=== PATIENT | female | born 1990 | race Caucasian/White ===

== ENCOUNTER → 2017-02-12 09:46 | Outpatient (CLI) | payer MEDICAID, SELFPAY ==
[2017-02-12 11:37] LABS: Basophils % 0.5 % (0.1-2.0); Eosinophils # 0.1 K/mm3 (0.0-0.4); Eosinophils % 1.8 % (0.1-12.0); Hematocrit 44.8 % (37.0-47.0); Hemoglobin 15.7 g/dL (12.2-16.2); Lymphocytes # 3.2 K/mm3 (0.7-4.5); Lymphocytes % 51.2 K/mm3 (10-50); Mean Corpuscular Hemoglobin 29.5 pg (27.0-31.2); Mean Corpuscular Volume 84.4 fl (81-99); Mean Platelet Volume 9.6 fl (7.4-10.4); Monocytes # 0.5 K/mm3 (0.1-1.0); Monocytes % 7.9 % (1.7-9.3); Neutrophils # 2.4 K/mm3 (1.8-7.8); Neutrophils % 38.6 % (37.0-80.0); Platelet Count 226 K/mm3 (142-424); Red Blood Count 5.31 M/mm3 (4.20-5.40); Red Cell Distribution Width 12.7 % (11.5-17.5); White Blood Count 6.3 K/mm3 (4.8-10.8)
[2017-02-12 11:39] LABS: MANUAL DIFFERENTIAL MANUAL DIFFERENTIAL (MANUAL DIFF)
[2017-02-12 11:44] LABS: Anion Gap 14.8 mEq/L (5-15); Blood Urea Nitrogen 9 mg/dL (7-18); Carbon Dioxide 24 mmol/L (21.0-32.0); Chloride 103 mmol/L (98-107); Creatinine,Serum 0.79 mg/dL (0.55-1.02); Estimated Glomerular Filt Rate > 60 ml/min (>60); GFR (African American) > 60 ML/MIN (>60); Glucose 84 mg/dL (74-106); Potassium 3.8 mmoL/L (3.5-5.1); Sodium 138 mmol/L (136-145)
[2017-02-12 11:57] LABS: HCG Qualitative, Serum Negative (Negative)
[2017-02-12 12:13] LABS: Eosinophils % 2 % (0-3); Lymphocytes % 43 % (10-50); Monocytes % 4 % (2-9); Neutrophils % 44 % (42-76); Platelet Estimate Normal; Total Cells Counted 100
[2017-02-12 12:25] LABS: RBC Morphology Normal
== END ==
PROVIDERS: PCP Family Medicine; Visit Provider Nurse Practitioner Obstetrics & Gynecology
DX: N92.0 Excessive and frequent menstruation with regular cycle (principal); N94.10 Unspecified dyspareunia; R10.2 Pelvic and perineal pain; Z01.818 Encounter for other preprocedural examination
CPT/HCPCS: 36415; 80048; 84703; 85007; 85025

== ENCOUNTER 2017-05-01 09:12 | Emergency (ER) | payer MEDICAID, SELFPAY ==
[2017-05-01 09:31] VITALS: BP 145/97; PULSE 95; RESP 20; TEMP 36.9; O2SAT 100; BMI 22.9
--- NOTE | 2017-05-01 09:54 | HMH.EDUTC ---
[facility] [place] Disposition Clinical Impression: UTI (urinary tract infection) Qualifiers: Urinary tract infection type: site unspecified Hematuria presence: with hematuria Qualified Code(s): N39.0 - Urinary tract infection, site not specified Disposition: Home, Self-Care Condition on Discharge: Good Instructions: Urinary Tract Infection, Carbamazepine, Mirtazapine, Paroxetine Additional Instructions: Follow up with family doctor on Wednesday for examination and evaluation of medication Follow up with family doctor in 24-48 hours if symptoms not improved or worsened Straight to ER if you began having worsening of symptoms, shortness of breath, hallucinations or worsening of depression or any life threatening symptoms Return if needed Take Paxil dose later in evening to see if that may help with drowsiness Continued taking medication as prescribed and follow up with family for changes Take antibiotics as prescribed and follow up with family doctor for further treatment and evaluation for UTI Prescriptions: Sulfamethoxazole/Trimethoprim [Bactrim DS tablet] 1 each PO BID #20 tab Referrals: Delio Roque [Primary Care Provider] - Time of Disposition: 10:49 Medical Decision Making - Medical Records Medical records reviewed: Yes: I reviewed the patient's medical records. - Bo Inquiry Pt receiving controlled substance: No Bo was queried for this patient: No Vital Signs: 05/01/17 09:31 Temperature 98.4 F Temperature Source Oral Pulse Rate [Right Brachial] 95 H Respiratory Rate 20 Blood Pressure [Right Arm] 145/97 Blood Pressure Mean [Right Arm] 113 Blood Pressure Source [Right Arm] Automatic Cuff Blood Pressure Position [Right Arm] Sitting 02 Sat by Pulse Oximetry 100 Oxygen Delivery Method Room Air - Lab Data Lab Results 05/01/17 09:56: Urine Color Yellow, Urine Appearance Clear, Urine pH 6.0, Ur Specific [place] 1.020, Urine Protein Negative, Urine Glucose (UA) Negative, Urine Ketones Negative, Urine Blood Negative, Urine Nitrate Negative, Urine Bilirubin Negative, Urine Urobilinogen 0.2, Ur Leukocyte Esterase Trace - Reevaluation(s) Time: 10:03 Reevaluation #1: Spoke with Pharmacy and patient. Patient educated that she needed to have doctor currently treating her and prescribing medication to adjust the doseage and find the appropriate dose Educated that we are unable to monitor medications and progress in the [facility] Patient educated that family doctor may monitor her medication and adjust appropriatly. Also risk of further side effects she does not need to abruptly stop medication. Suggested that instead of taking Paxil in the morning take it later in the evening considering a side effect of Paxil is drowsiness. Maybe by taking dose in the evening she would be able to sleep better at night and be more awake during the day Time: 10:29 Reevaluation #3: urine collected and dip test done Patient urinated small amount, swabs done to rule out flu and strep awaiting results. Patient alert awake sitting in room no signs of distress or changes Time reevaluation 3: 10:48 Reevaluation #2: All result back discussed antibiotic treatment with Earl from Pharmacy, patient still alert sitting up on exam table no distress [facility] [place] HPI - General Stated complaint: Lathargic, can't urinate Time Seen by Provider: 05/01/17 09:40 Mode of Arrival: Ambulatory Source of Information: Patient Limitations: No Limitations Description of Symptoms (Recalled from Triage Doc. by RN): c/o excessive drowsiness from psychiatric meds. Just released from [facility] yesterday. States she has only been awake 1 hour in last 3 days. wanting meds to be adjusted HEENT Symptoms (Recalled from RN notes): No Resp Symptoms (Recalled from RN notes): No Skin Symptoms (Recalled from RN notes): No MS Symptoms (Recalled from RN notes): No Functional Status (Recalled from RN notes): n/a - History of Present Illness Provider Complaint: Patient state th
--- NOTE | 2017-05-01 09:58 | ED_ITS ---
[facility] [place] Clinical Impression: UTI (urinary tract infection) Qualifiers: Urinary tract infection type: site unspecified Hematuria presence: with hematuria Qualified Code(s): N39.0 - Urinary tract infection, site not specified Disposition: Home, Self-Care Condition on Discharge: Good Instructions: Urinary Tract Infection, Carbamazepine, Mirtazapine, Paroxetine Additional Instructions: Follow up with family doctor on Wednesday for examination and evaluation of medication Follow up with family doctor in 24-48 hours if symptoms not improved or worsened Straight to ER if you began having worsening of symptoms, shortness of breath, hallucinations or worsening of depression or any life threatening symptoms Return if needed Take Paxil dose later in evening to see if that may help with drowsiness Continued taking medication as prescribed and follow up with family for changes Take antibiotics as prescribed and follow up with family doctor for further treatment and evaluation for UTI Prescriptions: Sulfamethoxazole/Trimethoprim [Bactrim DS tablet] 1 each PO BID #20 tab Referrals: Delio Roque [Primary Care Provider] - Time of Disposition: 10:49 Medical Decision Making - Medical Records Medical records reviewed: Yes: I reviewed the patient's medical records. - Bo Inquiry Pt receiving controlled substance: No Bo was queried for this patient: No Vital Signs: 05/01/17 09:31 Temperature 98.4 F Temperature Source Oral Pulse Rate [Right Brachial] 95 H Respiratory Rate 20 Blood Pressure [Right Arm] 145/97 Blood Pressure Mean [Right Arm] 113 Blood Pressure Source [Right Arm] Automatic Cuff Blood Pressure Position [Right Arm] Sitting 02 Sat by Pulse Oximetry 100 Oxygen Delivery Method Room Air - Lab Data Lab Results 05/01/17 09:56: Urine Color Yellow, Urine Appearance Clear, Urine pH 6.0, Ur Specific [place] 1.020, Urine Protein Negative, Urine Glucose (UA) Negative, Urine Ketones Negative, Urine Blood Negative, Urine Nitrate Negative, Urine Bilirubin Negative, Urine Urobilinogen 0.2, Ur Leukocyte Esterase Trace - Reevaluation(s) Time: 10:03 Reevaluation #1: Spoke with Pharmacy and patient. Patient educated that she needed to have doctor currently treating her and prescribing medication to adjust the doseage and find the appropriate dose Educated that we are unable to monitor medications and progress in the [facility] Patient educated that family doctor may monitor her medication and adjust appropriatly. Also risk of further side effects she does not need to abruptly stop medication. Suggested that instead of taking Paxil in the morning take it later in the evening considering a side effect of Paxil is drowsiness. Maybe by taking dose in the evening she would be able to sleep better at night and be more awake during the day Time: 10:29 Reevaluation #3: urine collected and dip test done Patient urinated small amount, swabs done to rule out flu and strep awaiting results. Patient alert awake sitting in room no signs of distress or changes Time reevaluation 3: 10:48 Reevaluation #2: All result back discussed antibiotic treatment with Earl from Pharmacy, patient still alert sitting up on exam table no distress [facility] [place]PI - General Stated complaint: Lathargic, can't urinate Time Seen by Provider: 05/01/17 09:40 Mode of Arrival: Ambulatory Source of Information: Patient Limitations: No Limitations Description of Symptoms (Recalled from Triage Doc. by RN): c/o
[2017-05-01 10:24] LABS: Apearance,Urine Clear (Clear); Color,Urine Yellow (Yellow)
[2017-05-01 10:25] LABS: Blood, Urine Negative (Negative); Glucose,Urine (UA) Negative (Negative); Ketones,Urine Negative (Negative); Protein,Urine Negative (Negative); Urobilinogen,Urine 0.2 EU/dl (0.2)
[2017-05-01 10:26] LABS: Bilirubin,Urine Negative (Negative); UTC Leukocyte Esterase,Urine Trace (Negative); UTC Nitrate,Urine Negative (Negative)
[2017-05-01 10:48] VITALS: BP 132/88; PULSE 90; RESP 18; TEMP 36.6; O2SAT 99
[2017-05-01 10:48] LABS: UTC Influenza A Antigen Negative (Negative); UTC Influenza B Antigen Negative (Negative); UTC Strep Screen (Rapid) Negative (Negative)
== END 2017-05-01 10:51 | disposition home or self-care (01) ==
PROVIDERS: Emergency Provider Nurse Practitioner; Family Provider Family Medicine; PCP Family Medicine
DX: N39.0 Urinary tract infection, site not specified (principal); Z88.7 Allergy status to serum and vaccine; Z79.899 Other long term (current) drug therapy
CPT/HCPCS: 81003; 87804; 87880; 99202

== ENCOUNTER 2017-05-07 12:07 | Emergency (ER) | payer MEDICAID, SELFPAY ==
[2017-05-07 12:11] VITALS: BP 136/88; PULSE 96; RESP 20; TEMP 37.1; O2SAT 98; BMI 22.9
--- NOTE | 2017-05-07 12:42 | HMH.EDURI ---
ED Disposition Clinical Impression: Edema tongue Disposition: Home, Self-Care Condition on Discharge: Good Additional Instructions: followup that the Paxil may be causing tongue edema and discomfirt at this time no evidence airway compromise, will Rx Ataarx for treatment Prescriptions: hydrOXYzine pamoate [Vistaril 25mg capsule] 25 mg PO Q8 PRN #20 cap PRN Reason: Dyspnea Referrals: Delio Roque [Primary Care Provider] - - Critical Care Critical Care Time: No Attestation: On 05/07/17, the high probability of a clinically significant, sudden or life threatening deterioration of the following system(s) required my full and direct attention, intervention and personal management. The time I documented below is in addition to time spent performing reported procedures but includes the following listed in this critical care notation. Medical Decision Making - Medical Records Medical records reviewed: Yes: I reviewed the patient's medical records. - Bo Inquiry Pt receiving controlled substance: No Bo was queried for this patient: No Vital Signs: 05/07/17 12:11 05/07/17 14:15 Temperature 98.8 F 98.5 F Temperature Source Oral Oral Pulse Rate [Right Brachial] 96 H 85 Respiratory Rate 20 16 Blood Pressure [Right Arm] 136/88 123/81 Blood Pressure Mean [Right Arm] 104 95 Blood Pressure Source [Right Arm] Automatic Cuff Automatic Cuff Blood Pressure Position [Right Arm] Supine Sitting 02 Sat by Pulse Oximetry 98 97 Oxygen Delivery Method Room Air Room Air - Radiology Data #1 Image(s): Other (soft tissues neck) Image Reviewed: Yes I reviewed the patient's radiology results Preliminary Findings: Normal/NAD URI/Sore Throat HPI - General Chief Complaint: Shortness of Breath/Dyspnea Stated Complaint: has had seizure and tonngue swelling Time Seen by Provider: 05/07/17 13:30 Mode of Arrival: Ambulatory Source of Information: Patient Limitations: No Limitations Description of Symptoms (Recalled from ER Triage Doc. by RN): WAS RECENTLY IN [facility] FOR DRUG ABUSE AND DEVELOPED SEIZURES. HERE TODAY FOR C/O SWELLING OF MOUTH,TOUNGUE AND THROAT WITH SOB SINCE LAST PM. HAS C/O SORENESS AND BLISTERS IN MOUTH. JUST STARTED TAKING CLINDAMYCIN A COUPLE OF AYS AGO FOR CELLULITIS OF HAND - History of Present Illness HPI Narrative: blisters in tongue and tongue swelling MD Complaint: fever Onset (ago): hour(s) (12) Duration: constant Severity: mild Relieving factors: nothing Exacerbating factors: nothing - Related Data Home Medications Medication Instructions Recorded Confirmed PARoxetine HCl [Paxil 20mg Tablet] 20 mg PO DAILY 05/01/17 05/07/17 carBAMazepine [Tegretol 100mg 100 mg PO BID 05/01/17 05/07/17 tablet] Clindamycin HCl [Clindamycin 300mg 300 mg PO Q6 PRN 05/07/17 05/07/17 Cap] Previous Rx's Medication Instructions Recorded hydrOXYzine pamoate [Vistaril 25mg 25 mg PO Q8 PRN #20 cap 05/07/17 capsule] Allergies Allergy/AdvReac Type Severity Reaction Status Date / Time cephalexin [From KEFLEX] Allergy Unknown Verified 02/15/17 06:23 morphine [MORPHINE] Allergy Unknown Verified 02/15/17 06:23 promethazine [From PHENERGAN] Allergy Unknown Verified 02/15/17 06:23 tetanus toxoid, adsorbed Allergy Unknown Verified 02/15/17 06:23 [TETANUS TOXOID, ADSORBED] [facility] History I have reviewed the patient's past medical history: Yes 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: 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
--- NOTE | 2017-05-07 12:45 | ED_ITS ---
ED Disposition Clinical Impression: Edema tongue Disposition: Home, Self-Care Condition on Discharge: Good Additional Instructions: followup that the Paxil may be causing tongue edema and discomfirt at this time no evidence airway compromise, will Rx Ataarx for treatment Prescriptions: hydrOXYzine pamoate [Vistaril 25mg capsule] 25 mg PO Q8 PRN #20 cap PRN Reason: Dyspnea Referrals: Delio Roque [Primary Care Provider] - - Critical Care Critical Care Time: No Attestation: On 05/07/17, the high probability of a clinically significant, sudden or life threatening deterioration of the following system(s) required my full and direct attention, intervention and personal management. The time I documented below is in addition to time spent performing reported procedures but includes the following listed in this critical care notation. Medical Decision Making - Medical Records Medical records reviewed: Yes: I reviewed the patient's medical records. - Bo Inquiry Pt receiving controlled substance: No Bo was queried for this patient: No Vital Signs: 05/07/17 12:11 05/07/17 14:15 Temperature 98.8 F 98.5 F Temperature Source Oral Oral Pulse Rate [Right Brachial] 96 H 85 Respiratory Rate 20 16 Blood Pressure [Right Arm] 136/88 123/81 Blood Pressure Mean [Right Arm] 104 95 Blood Pressure Source [Right Arm] Automatic Cuff Automatic Cuff Blood Pressure Position [Right Arm] Supine Sitting 02 Sat by Pulse Oximetry 98 97 Oxygen Delivery Method Room Air Room Air - Radiology Data #1 Image(s): Other (soft tissues neck) Image Reviewed: Yes I reviewed the patient's radiology results Preliminary Findings: Normal/NAD URI/Sore Throat HPI - General Chief Complaint: Shortness of Breath/Dyspnea Stated Complaint: has had seizure and tonngue swelling Time Seen by Provider: 05/07/17 13:30 Mode of Arrival: Ambulatory Source of Information: Patient Limitations: No Limitations Description of Symptoms (Recalled from ER Triage Doc. by RN): WAS RECENTLY IN [facility] FOR DRUG ABUSE AND DEVELOPED SEIZURES. HERE TODAY FOR C/O SWELLING OF MOUTH,TOUNGUE AND THROAT WITH SOB SINCE LAST PM. HAS C/O SORENESS AND BLISTERS IN MOUTH. JUST STARTED TAKING CLINDAMYCIN A COUPLE OF AYS AGO FOR CELLULITIS OF HAND - History of Present Illness HPI Narrative: blisters in tongue and tongue swelling MD Complaint: fever Onset (ago): hour(s) (12) Duration: constant Severity: mild Relieving factors: nothing Exacerbating factors: nothing - Related Data Home Medications Medication Instructions Recorded Confirmed PARoxetine HCl [Paxil 20mg Tablet] 20 mg PO DAILY 05/01/17 05/07/17 carBAMazepine [Tegretol 100mg 100 mg PO BID 05/01/17 05/07/17 tablet] Clindamycin HCl [Clindamycin 300mg 300 mg PO Q6 PRN 05/07/17 05/07/17 Cap] Previous Rx's Medication Instructions Recorded hydrOXYzine pamoate [Vistaril 25mg 25 mg PO Q8 PRN #20 cap 05/07/17 capsule] Allergies Allergy/AdvReac Type Severity Reaction Status Date / Time cephalexin [From KEFLEX] Allergy Unknown Verified 02/15/17 06:23 morphine [MORPHINE] Allergy Unknown Verified 02/15/17 06:23 promethazine [From PHENERGAN] Allergy Unknown Verified 02/15/17 06:23 tetanus toxoid, adsorbed Allergy Unknown Verified 02/15/17 06:23
--- NOTE | 2017-05-07 12:58 | XR_ITS ---
XR soft tissue neck CLINICAL INDICATION: ITS.REASON: subjective tongue swelling ORDERING PHYSICIAN: Vasiliy Cazares MD PATIENT AGE: 26 years COMPARISON: None FINDINGS: No prevertebral soft tissue swelling, air-fluid levels, or radio opaque foreign body. The epiglottis has an unremarkable appearance. IMPRESSION: Negative soft tissues of the neck
[2017-05-07 14:15] VITALS: BP 123/81; PULSE 85; RESP 16; TEMP 36.9; O2SAT 97
[2017-05-07 14:37] VITALS: BP 123/81; PULSE 85; RESP 16; TEMP 36.9; O2SAT 97
== END 2017-05-07 14:38 | disposition home or self-care (01) ==
PROVIDERS: Emergency Provider Family Medicine; Family Provider Family Medicine; PCP Family Medicine
DX: K14.8 Other diseases of tongue (principal); F19.90 Other psychoactive substance use, unspecified, uncomplicated; R56.9 Unspecified convulsions
CPT/HCPCS: 70360; 99282

== ENCOUNTER 2017-05-11 12:48 | Emergency (ER) | payer MEDICAID, SELFPAY ==
[2017-05-11 13:12] VITALS: BP 128/98; PULSE 104; RESP 16; TEMP 36.3; O2SAT 98; BMI 25.0
--- NOTE | 2017-05-11 15:09 | HMH.EDNVD ---
ED Disposition Clinical Impression: Diarrhea, IV drug user, Difficult intravenous access Disposition: Home, Self-Care Condition on Discharge: Fair Instructions: DI for Nausea -- Adult, DI for Nausea -- Child, DI for Diarrhea and Traveler's Diarrhea -- Adult, DI for Diarrhea and Traveler's Diarrhea -- Child Additional Instructions: 1- use zofran for nausea. 2- plenty of gotrade 16 oz q 4 3- 4-5 uop a day. 4- sool sample deshpande diarrhea panel and follow up with dr vazquez. 5- return if you develope abdominal pain, hematemsis, rectal bleeding or fever. Prescriptions: Loperamide HCl [Imodium 2 mg capsule] 2 mg PO Q3MINP PRN #12 cap PRN Reason: Diarrhea Dicyclomine HCl [Bentyl 10mg capsule] 10 mg PO Q8HP PRN #21 cap PRN Reason: Cramping Ondansetron [Zofran 4mg ODT] 4 mg PO Q8HP PRN #12 tab.rapdis PRN Reason: Nausea raNITIdine HCl [Zantac] 150 mg PO Q12 #30 tab Referrals: Delio Vazquez [Primary Care Provider] - - Critical Care Critical Care Time: No Attestation: On 05/11/17, the high probability of a clinically significant, sudden or life threatening deterioration of the following system(s) required my full and direct attention, intervention and personal management. The time I documented below is in addition to time spent performing reported procedures but includes the following listed in this critical care notation. Medical Decision Making - Bo Inquiry Pt receiving controlled substance: No Bo was queried for this patient: No Vital Signs: 05/11/17 13:12 Temperature 97.4 F L Temperature Source Oral Pulse Rate [Right Radial] 104 H Respiratory Rate 16 Blood Pressure [Right Arm] 128/98 Blood Pressure Mean [Right Arm] 108 Blood Pressure Source [Right Arm] Automatic Cuff 02 Sat by Pulse Oximetry 98 Oxygen Delivery Method Room Air Medical Decision Narrative: Attempted attempted to obtain IV axis for labs and IV fluids but she was difficult stick due to prior IV drug use. The present time she does not seem to be clinically dehydrated. We discussed conservative treatment using Zofran and Imodium Bentyl and Zantac. She will need to obtain stool sample to exclude C. difficile due to recent antibiotic use. She is to return if not better or or if she develops abdominal pain or fever. Nausea/Vomiting/Diarrhea HPI - General Chief complaint: Nausea/Vomiting/Diarrhea Stated complaint: vomiting dehydrated Time Seen by Provider: 05/11/17 14:00 Mode of Arrival: Ambulatory Limitations: No Limitations Description of Symptoms (Recalled from ER Triage Doc. by RN): Diarrhea - History of Present Illness HPI Narrative: 26 years old white female with history of IV drug abuse who was recently seen at [place] for UTI she was given clindamycin and Bactrim. After 2 days of antibiotics she developed rash and both antibiotics. Yesterday she developed diarrhea 20 times a day and vomited 4-5 times a day. She urinated twice this morning. Denies having abdominal pain fever or chills hematemesis coffee-ground emesis melanotic stool or bleeding per rectum. Denies having dysuria hematuria or frequency. MD complaint: nausea, vomiting, diarrhea Onset (ago): day(s) (1 day.) Description of Vomiting: food contents Description of Diarrhea: water Associated Abdominal Pain: No Associated symptoms: nausea/vomiting - Related Data Home Medications Medication Instructions Recorded Confirmed PARoxetine HCl [Paxil 20mg Tablet] 20 mg PO DAILY 05/01/17 05/07/17 carBAMazepine [Tegretol 100mg 100 mg PO BID 05/01/17 05/07/17 tablet] Clindamycin HCl [Clindamycin 300mg 300 mg PO Q6 PRN 05/07/17 05/07/17 Cap] Previous Rx's Medication Instructions Recorded hydrOXYzine pamoate [Vistaril 25mg 25 mg PO Q8 PRN #20 cap 05/07/17 capsule] Dicyclomine HCl [Bentyl 10mg 10 mg PO Q8HP PRN #21 cap 05/11/17 capsule] Loperamide HCl [Imodium 2 mg 2 mg PO Q3MINP PRN #12 cap 05/11/17 capsule] Ondansetron [Zofran
--- NOTE | 2017-05-11 15:13 | ED_ITS ---
ED Disposition Clinical Impression: Diarrhea, IV drug user, Difficult intravenous access Disposition: Home, Self-Care Condition on Discharge: Fair Instructions: DI for Nausea -- Adult, DI for Nausea -- Child, DI for Diarrhea and Traveler's Diarrhea -- Adult, DI for Diarrhea and Traveler's Diarrhea -- Child Additional Instructions: 1- use zofran for nausea. 2- plenty of gotrade 16 oz q 4 3- 4-5 uop a day. 4- sool sample deshpande diarrhea panel and follow up with dr vazquez. 5- return if you develope abdominal pain, hematemsis, rectal bleeding or fever. Prescriptions: Loperamide HCl [Imodium 2 mg capsule] 2 mg PO Q3MINP PRN #12 cap PRN Reason: Diarrhea Dicyclomine HCl [Bentyl 10mg capsule] 10 mg PO Q8HP PRN #21 cap PRN Reason: Cramping Ondansetron [Zofran 4mg ODT] 4 mg PO Q8HP PRN #12 tab.rapdis PRN Reason: Nausea raNITIdine HCl [Zantac] 150 mg PO Q12 #30 tab Referrals: Delio Vazquez [Primary Care Provider] - - Critical Care Critical Care Time: No Attestation: On 05/11/17, the high probability of a clinically significant, sudden or life threatening deterioration of the following system(s) required my full and direct attention, intervention and personal management. The time I documented below is in addition to time spent performing reported procedures but includes the following listed in this critical care notation. Medical Decision Making - Bo Inquiry Pt receiving controlled substance: No Bo was queried for this patient: No Vital Signs: 05/11/17 13:12 Temperature 97.4 F L Temperature Source Oral Pulse Rate [Right Radial] 104 H Respiratory Rate 16 Blood Pressure [Right Arm] 128/98 Blood Pressure Mean [Right Arm] 108 Blood Pressure Source [Right Arm] Automatic Cuff 02 Sat by Pulse Oximetry 98 Oxygen Delivery Method Room Air Medical Decision Narrative: Attempted attempted to obtain IV axis for labs and IV fluids but she was difficult stick due to prior IV drug use. The present time she does not seem to be clinically dehydrated. We discussed conservative treatment using Zofran and Imodium Bentyl and Zantac. She will need to obtain stool sample to exclude C. difficile due to recent antibiotic use. She is to return if not better or or if she develops abdominal pain or fever. Nausea/Vomiting/Diarrhea HPI - General Chief complaint: Nausea/Vomiting/Diarrhea Stated complaint: vomiting dehydrated Time Seen by Provider: 05/11/17 14:00 Mode of Arrival: Ambulatory Limitations: No Limitations Description of Symptoms (Recalled from ER Triage Doc. by RN): Diarrhea - History of Present Illness HPI Narrative: 26 years old white female with history of IV drug abuse who was recently seen at [place] for UTI she was given clindamycin and Bactrim. After 2 days of antibiotics she developed rash and both antibiotics. Yesterday she developed diarrhea 20 times a day and vomited 4-5 times a day. She urinated twice this morning. Denies having abdominal pain fever or chills hematemesis coffee- ground emesis melanotic stool or bleeding per rectum. Denies having dysuria hematuria or frequency. MD complaint: nausea, vomiting, diarrhea Onset (ago): day(s) (1 day.) Description of Vomiting: food contents Description of Diarrhea: water Associated Abdominal Pain: No Associated symptoms: nausea/vomiting - Related Data Home Medications Medication Instructions Recorded Confirmed PARoxetine
[2017-05-11 15:15] VITALS: BP 118/78; PULSE 92; RESP 18; O2SAT 97
[2017-05-11 15:35] VITALS: BP 138/75; PULSE 74; RESP 16; TEMP 36.7; O2SAT 98
== END 2017-05-11 15:40 | disposition home or self-care (01) ==
PROVIDERS: Emergency Provider Emergency Medicine; Family Provider Family Medicine; PCP Family Medicine
DX: R19.7 Diarrhea, unspecified (principal); N39.0 Urinary tract infection, site not specified; F19.90 Other psychoactive substance use, unspecified, uncomplicated; Z78.9 Other specified health status; Z88.7 Allergy status to serum and vaccine; Z88.1 Allergy status to other antibiotic agents
CPT/HCPCS: 99282

== ENCOUNTER → 2020-12-31 13:54 | Outpatient (CLI) | payer OTHER, SELFPAY | PROVIDERS: PCP Internal Medicine Adolescent Medicine; Visit Provider Nurse Practitioner | DX: Z20.822 Contact with and (suspected) exposure to COVID-19 (principal) | CPT/HCPCS: C9803; U0003; U0005 ==

== ENCOUNTER 2021-02-07 12:38 | Emergency (ER) | payer OTHER, SELFPAY ==
[2021-02-07 12:39] VITALS: BP 140/91; PULSE 80; RESP 16; TEMP 36.7; O2SAT 97; BMI 30.2
--- NOTE | 2021-02-07 13:03 | HMH.EDGENADL ---
ED Disposition Clinical Impression: Spider bite Qualifiers: Encounter type: sequela Injury intent: accidental or unintentional Qualified Code(s): T63.301S - Toxic effect of unspecified spider venom, accidental (unintentional), sequela Disposition: Home, Self-Care Condition on Discharge: Good Instructions: DI for Spider Bites Additional Instructions: Take antibiotic, clindamycin, as prescribed. Elevate your hand. Warm compresses 20 minutes 3-4 times a day. Ibuprofen to reduce pain, swelling, inflammation. Follow-up with primary care doctor next week for recheck. Return to the emergency department if severe swelling, severe pain, red streaks up arm, or fever. Prescriptions: clindamycin HCL [Clindamycin HCl] 300 mg PO QID #28 cap Transmission Status: Pending to [facility] Referrals: Kristopher Sung MD [Primary Care Provider] - - Critical Care Critical Care Time: No Attestation: On , the high probability of a clinically significant, sudden or life threatening deterioration of the following system(s) required my full and direct attention, intervention and personal management. The time I documented below is in addition to time spent performing reported procedures but includes the following listed in this critical care notation. Medical Decision Making - Bo Inquiry Pt receiving controlled substance: No General Adult HPI - General Stated complaint: possible spider bite on left pinky Time Seen by Provider: 02/07/21 13:03 - History of Present Illness HPI narrative: Complains of a spider bite on her left small finger. 2 days ago she saw a furry brown spider bite her. Since then she has pain swelling and redness of the finger. No fever. - Related Data Previous Rx's Medication Instructions Recorded clindamycin HCL [Clindamycin HCl] 300 mg PO QID #28 cap 02/07/21 Allergies Allergy/AdvReac Type Severity Reaction Status Date / Time cephalexin [From KEFLEX] Allergy Unknown Verified 12/15/17 19:58 morphine [MORPHINE] Allergy Unknown Verified 12/15/17 19:58 promethazine [From PHENERGAN] Allergy Unknown Verified 12/15/17 19:58 tetanus toxoid, adsorbed Allergy Unknown Verified 12/15/17 19:58 [TETANUS TOXOID, ADSORBED] [facility] History - Hepatitis A Screen Attestation statement:: This patient has been screened for Hepatitis A risk factors. I have reviewed the patient's past medical history: Yes 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: Reports:: Anxiety, Cancer, Depression Denies:: Diabetes Mellitus Type 1, Diabetes Mellitus Type 2, Hyperlipidemia, Hypertension, MRSA, Seizures Other 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: Denies: Blood Transfusion Reaction Comment: HEP C Laterality Cases: Bilateral: Tonsillectomy Other Surgeries: Yes: Diagnostic Lap Amputation: No Fractures: No Comment: lap lauro - Social History Smoking Status: Never smoker Alcohol Intake: former Substance Use Type: marijuana, methamphetamine Occupational Status: unemployed Housing: apartment Household Members: significant other - Psychiatric History Pschychiatric History:: Reports:: Anxiety, Depression Family Hx:: Cancer, Tuberculosis, Stroke, Hypertension, Asthma ROS Obtained: Yes Systems reviewed as appropriate & no additional complaints - Constitutional Constitutional: Denies fever(s) - Integumentary/Breasts Skin/Breast: Reports as per HPI, Reports wounds - Neurologic Neurologic: Denies numbness, Denies weakness Physical Exam - General General appearance: alert, in no apparent distress - Respiratory Respiratory exam: Absent: respiratory distress - Cardiovascular Cardiovascular exam: Present: regular rate - Expanded Upper Extremity Exam Left Comment: Erythema and mild edema of left small finger. No visible puncture wounds. No skin necrosis. No vesicles or abscesses. No lymphangitis. Full range of motion. No signs of flexor tenosynovitis. Neurovascular status intact. - Neurological Exam Neurological exa
[2021-02-07 13:47] VITALS: BP 145/93; PULSE 80; RESP 16; TEMP 36.7; O2SAT 97
== END 2021-02-07 13:47 | disposition home or self-care (01) ==
PROVIDERS: Emergency Provider Emergency Medicine; PCP Internal Medicine Adolescent Medicine
DX: T63.301A Toxic effect of unspecified spider venom, accidental (unintentional), initial encounter (principal); S60.467A Insect bite (nonvenomous) of left little finger, initial encounter; W57.XXXA Bitten or stung by nonvenomous insect and other nonvenomous arthropods, initial encounter
CPT/HCPCS: 99281

== ENCOUNTER 2021-03-18 08:45 | Emergency (ER) | payer OTHER, SELFPAY ==
[2021-03-18 08:47] VITALS: BP 122/84; PULSE 101; RESP 19; TEMP 37.5; O2SAT 95; BMI 28.1
[2021-03-18 08:57] VITALS: BMI 28.1
--- NOTE | 2021-03-18 09:02 | XR_ITS ---
FINAL REPORT CLINICAL HISTORY: cough sob, no hx smoking. no chance . COMPARISON: July 24, 2016 FINDINGS: SINGLE VIEW CHEST. The heart is normal in size. The mediastinum is unremarkable. The lungs are clear. There is no pneumothorax. IMPRESSION: No acute process. Reviewed, Interpreted and Dictated by Chava Flanagan III, MD Transcribed by Marianna Holder Authenticated by Chava Flanagan III, MD on 03/18/2021 10:16:16 AM [facility]
--- NOTE | 2021-03-18 09:18 | HMH.EDGENADL ---
ED Disposition Clinical Impression: Upper respiratory infection Qualifiers: URI type: unspecified viral URI Qualified Code(s): J06.9 - Acute upper respiratory infection, unspecified Disposition: Home, Self-Care Condition on Discharge: Good Instructions: DI for Viral Upper Respiratory Infection -- Adult Additional Instructions: Quarantine yourself until you obtain your COVID-19 test result. You will be called with the result if positive. Tylenol or ibuprofen for fever and pain. Zofran as needed for nausea and vomiting. Tessalon as needed for cough. Additional instructions for UPPER RESPIRATORY INFECTION: See your physician if not improving in 3-4 days or if worsening. Rest and drink plenty of fluids. Return immediately if you have an uncontrollable fever greater than 104 degrees, difficulty breathing or shortness of breath, persistent vomiting, or inability to swallow. Prescriptions: Benzonatate [Benzonatate 100mg cap] 100 mg PO TIDP PRN #15 cap PRN Reason: Cough Transmission Status: Pending to [facility] Ondansetron [Zofran 4mg ODT] 4 mg PO TIDP PRN #10 tab PRN Reason: Nausea And Vomiting Transmission Status: Pending to [facility] Referrals: Kristopher Sung MD [Primary Care Provider] - - Critical Care Critical Care Time: No Attestation: On 03/18/21, the high probability of a clinically significant, sudden or life threatening deterioration of the following system(s) required my full and direct attention, intervention and personal management. The time I documented below is in addition to time spent performing reported procedures but includes the following listed in this critical care notation. Medical Decision Making - Bo Inquiry Pt receiving controlled substance: No Vital Signs: 03/18/21 08:47 Temperature 99.5 F Temperature Source Oral Pulse Rate [Left Radial] 101 H Respiratory Rate 19 Blood Pressure [Right Arm] 122/84 Blood Pressure Mean [Right Arm] 96 Blood Pressure Source [Right Arm] Automatic Cuff Blood Pressure Position [Right Arm] Sitting 02 Sat by Pulse Oximetry 95 Oxygen Delivery Method Room Air - Lab Data Lab Results 03/18/21 09:20: Group A Strep Rapid Negative Orders (Tests/Meds): ED MEDICATIONS Discontinued Medications Generic Name Dose Route Start Last Admin Trade Name Freq PRN Reason Stop Dose Admin Acetaminophen 1,000 mg 03/18/21 08:58 03/18/21 09:03 Acetaminophen 500mg Tab PO 03/18/21 08:59 1,000 mg ONCE ONE Administration Ibuprofen 600 mg 03/18/21 08:59 03/18/21 09:03 Ibuprofen 600 Mg Tablet PO 03/18/21 09:00 600 mg ONCE ONE Administration Ondansetron HCl 4 mg 03/18/21 09:00 03/18/21 09:02 Ondansetron 4mg/5ml Aura Udc PO 03/18/21 09:01 Not Given ONCE ONE Ondansetron HCl 4 mg 03/18/21 09:02 03/18/21 09:03 Ondansetron 4mg Odt SL 03/18/21 09:03 4 mg ONCE ONE Administration ORDERS Category Date Time Status Covid-19 Nasal PCR ([facility]) Routine Lab 03/18/21 09:02 Received Strep Screen Confirmation Stat Micro 03/18/21 09:20 Received - Radiology Data #1 Image(s): Chest Image Reviewed: Yes I reviewed the patient's radiology image, Yes I have reviewed radiologist's interpretation Procedure(s): XR chest portable Accession Number(s): [id number] cc: Kristopher Sung MD; Chava Flanagan MD~ FINAL REPORT CLINICAL HISTORY: cough sob, no hx smoking. no chance . COMPARISON: July 24, 2016 FINDINGS: SINGLE VIEW CHEST. The heart is normal in size. The mediastinum is unremarkable. The lungs are clear. There is no pneumothorax. IMPRESSION: No acute process. Reviewed, Interpreted and Dictated by Chava Flanagan III, MD Transcribed by Marianna Holder Authenticated by Chava Flanagan III, MD on 03/18/2021 10:16:16 AM [facility] Adult HPI - General Chief complaint: Upper Respiratory Infection Stated complaint: coug
[2021-03-18 09:45] LABS: Strep Scrn Group A (Rapid) Negative (Negative)
[2021-03-18 10:38] VITALS: BP 129/71; PULSE 78; RESP 16; TEMP 36.6; O2SAT 98
== END 2021-03-18 10:49 | disposition home or self-care (01) ==
PROVIDERS: Emergency Provider Emergency Medicine; PCP Internal Medicine Adolescent Medicine
DX: R05.9 Cough, unspecified (principal); J06.9 Acute upper respiratory infection, unspecified; U07.1 COVID-19
CPT/HCPCS: 71045; 87430; 96374; 99283; C9803; U0003; U0005

== ENCOUNTER → 2021-03-28 08:02 | Outpatient (CLI) | payer OTHER, SELFPAY ==
--- NOTE | 2021-03-28 08:02 | US_ITS ---
FINAL REPORT CLINICAL HISTORY: Heavy Bleeding FINDINGS: Transvaginal sonographic images of the pelvis were obtained. The uterus measures 8.0 x 3.9 x 4.6 cm. The endometrium measures 2 mm, which is within normal limits. No uterine mass is identified. The right ovary measures 2.6 cm cm in length and left ovary measures 2.6 cm cm in length. Normal blood flow seen to the ovaries. There is no evidence of free fluid. IMPRESSION: No acute abnormality identified. Reviewed, Interpreted and Dictated by Chava Flanagan III, MD Transcribed by Marianna Holder Authenticated by Chava Flanagan III, MD on 03/28/2021 09:16:33 AM [facility]
== END ==
PROVIDERS: PCP Internal Medicine Adolescent Medicine; Visit Provider Nurse Practitioner Obstetrics & Gynecology
DX: N92.0 Excessive and frequent menstruation with regular cycle (principal)
CPT/HCPCS: 76830

== ENCOUNTER 2021-04-02 12:46 | Emergency (ER) | payer OTHER, SELFPAY ==
[2021-04-02 13:00] VITALS: BP 124/86; PULSE 77; RESP 16; TEMP 37; O2SAT 99; BMI 30.9
--- NOTE | 2021-04-02 13:15 | HMH.EDUTC ---
[facility] [place] Clinical Impression: Urticaria Disposition: Home, Self-Care Condition on Discharge: Good Instructions: Hives, DI for Hives, Diphenhydramine Additional Instructions: Over the counter Benadryl may help with itching and rash on hands, legs and back Oatmeal baths may help to soothe the skin and help with itching Follow up with Family Doctor if symptoms return or worsen Return if needed Straight to ER if any life threatening symptoms Prescriptions: methylPREDNISolone [Medrol 4mg tab] 4 mg PO DIRECTED #21 tab Transmission Status: Pending to [facility] Referrals: Kristopher Sung MD [Primary Care Provider] - As needed Time of Disposition: 13:57 Medical Decision Making - Bo Inquiry Pt receiving controlled substance: No Bo was queried for this patient: No Vital Signs: 04/02/21 13:00 Temperature 98.6 F Temperature Source Oral Pulse Rate [Right Brachial] 77 Respiratory Rate 16 Blood Pressure [Right Arm] 124/86 Blood Pressure Mean [Right Arm] 98 Blood Pressure Source [Right Arm] Automatic Cuff Blood Pressure Position [Right Arm] Sitting 02 Sat by Pulse Oximetry 99 Oxygen Delivery Method Room Air Orders (Tests/Meds): ED MEDICATIONS Discontinued Medications Generic Name Dose Route Start Last Admin Trade Name Joseq PRN Reason Stop Dose Admin Diphenhydramine HCl 25 mg 04/02/21 13:15 04/02/21 13:28 Diphenhydramine 50mg/Ml Vial IM 04/02/21 13:16 25 mg ONCE ONE Administration Famotidine 20 mg 04/02/21 13:15 04/02/21 13:28 Famotidine 20mg Tablet PO 04/02/21 13:16 20 mg ONCE ONE Administration Loratadine 10 mg 04/02/21 13:16 04/02/21 13:28 Loratadine 10mg Tablet PO 04/02/21 13:17 10 mg ONCE ONE Administration Methylprednisolone Sodium Succinate 125 mg 04/02/21 13:15 04/02/21 13:28 Methylprednisolone Sod Succ 125mg Vial IM 04/02/21 13:16 125 mg ONCE ONE Administration Medical Decision Narrative: Patient denies states that she has had tubal Rash much improved after medication [facility] [place] HPI - General Stated complaint: rash Time Seen by Provider: 04/02/21 13:15 Mode of Arrival: Ambulatory Source of Information: Patient Limitations: No Limitations Description of Symptoms (Recalled from Triage Doc. by RN): rash and itching and tingling on hands, arms, and hips. HEENT Symptoms (Recalled from RN notes): No Resp Symptoms (Recalled from RN notes): No Skin Symptoms (Recalled from RN notes): Yes MS Symptoms (Recalled from RN notes): No Functional Status (Recalled from RN notes): wnl - History of Present Illness Provider Complaint: Patient states that she eat at [employer] this morning and shortly after eating there she started having rash all over her body with itching States that welps continued to spread on her legs, back, arms and hands States that she was still itching and rash looked like it was continuing to spread so she came in to get checked - Related Data Home Medications Medication Instructions Recorded Confirmed albuterol sulfate 90 mcg/actuation 2 puff INHALATION Q6H PRN 03/24/21 04/02/21 aerosol inhaler budesonide-formoterol HFA 80 g INHALATION 03/24/21 04/02/21 mcg-4.5 mcg/actuation aerosol inhaler dexamethasone 1.5 mg (21 tabs) See Rx Instructions PO PER PKG DIR 03/24/21 04/02/21 tablets in a dose pack Previous Rx's Medication Instructions Recorded Benzonatate [Benzonatate 100mg 100 mg PO TIDP PRN #15 cap 03/18/21 cap] Ondansetron [Zofran 4mg ODT] 4 mg PO TIDP PRN #10 tab 03/18/21 methylPREDNISolone [Medrol 4mg 4 mg PO DIRECTED #21 tab 04/02/21 tab] Allergies Allergy/AdvReac Type Severity Reaction Status Date / Time cephalexin [From KEFLEX] Allergy Unknown Verified 04/02/21 11:05 morphine [MORPHINE] Allergy Unknown Verified 04/02/21 11:05 promethazine [From PHENERGAN] Allergy Unknown Verified 04/02/21 11:05 tetanus toxoid, adsorbed Allergy Unknow
[2021-04-02 14:03] VITALS: BP 124/86; PULSE 77; RESP 16; TEMP 37; O2SAT 99
== END 2021-04-02 14:03 | disposition home or self-care (01) ==
PROVIDERS: Emergency Provider Nurse Practitioner; PCP Internal Medicine Adolescent Medicine
DX: L50.0 Allergic urticaria (principal)
CPT/HCPCS: 96372; 99202; G0463

== ENCOUNTER → 2021-04-18 09:30 | Outpatient (CLI) | payer OTHER, SELFPAY ==
[2021-04-18 09:54] LABS: Basophils # 0.1 K/mm3 (0-0.2); Basophils % 1.6 % (0.1-2.0); Eosinophils # 0.1 K/mm3 (0.0-0.4); Eosinophils % 1.3 % (0.1-12.0); Hematocrit 42.6 % (37.0-47.0); Lymphocytes # 2.2 K/mm3 (0.7-4.5); Mean Corpuscular HGB Conc 32.8 g/dL (31.8-35.4); Mean Corpuscular Hemoglobin 29.6 pg (27.0-31.2); Mean Corpuscular Volume 90.2 fl (81-99); Mean Platelet Volume 7.7 fl (7.4-10.4); Monocytes # 0.3 K/mm3 (0.1-1.0); Monocytes % 5.3 % (1.7-9.3); Neutrophils # 3.6 K/mm3 (1.8-7.8); Neutrophils % 56.8 % (37.0-80.0); Platelet Count 270 K/mm3 (142-424); Red Blood Count 4.72 M/mm3 (4.20-5.40); White Blood Count 6.3 K/mm3 (4.8-10.8)
[2021-04-18 10:20] LABS: HCG Qualitative, Serum Negative (Negative)
[2021-04-18 10:30] LABS: Blood Urea Nitrogen 11 mg/dl (7-17); Calcium 9.8 mg/dl (8.4-10.2); Carbon Dioxide 27 mmol/L (22.0-30.0); Chloride 105 mmol/L (98-107); Estimated Glomerular Filt Rate 83 ml/min (>60); GFR (African American) 101 ML/MIN (>60); Glucose 88 mg/dl (74-100); Sodium 138 mmol/L (136-145)
== END ==
PROVIDERS: Visit Provider Nurse Practitioner Obstetrics & Gynecology
DX: Z01.818 Encounter for other preprocedural examination (principal); N92.0 Excessive and frequent menstruation with regular cycle
CPT/HCPCS: 36415; 80048; 84703; 85025

== ENCOUNTER 2021-04-21 06:00 | Day surgery (SDC) | payer OTHER, SELFPAY ==
[2021-04-16 11:53] VITALS: BMI 30.2
[2021-04-21] VITALS (12 sets, daily range): BP systolic 118–143; BP diastolic 67–88; PULSE 64–102; RESP 13–19; TEMP 36.2–36.7; O2SAT 92–98
--- NOTE | 2021-04-21 06:57 | HMH.ANESCL ---
[facility] Anesthesia Checklist - Patient Identification Patient Identification: Arm Band - Structural Data Admitted From: Home Planned Operative Procedure/s: Hyst/ D & C/ Novasure Consent for Planned Operative Procedure(s) Verified: Yes - NPO Status Verified Time NPO: 00:00 - Additional verifications Anesthesia Reactions: No Hx Blood Transfusions: No Blood Transfusion Reaction: No - Airway Assessment C-Spine Mobility Assessed: Yes TMJ Mobility Assessed: Yes Dentition: Good Dentition - Neurological Assessment Level of Consciousness: Awake Hx Seizures: Yes (2018) Numbness or tingling in extremities: No - Anesthesia Plan Anesthesia Risk discussed: Yes Anesthesia Plan: Verified ASA Class: II Anesthesia Type: General [facility] History I have reviewed the patient's past medical history: Yes 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: Reports:: Anxiety, Cancer (cervical), Depression, Gastroesophageal Reflux Disease(GERD), Seizures (last seizure april 2017) Denies:: Diabetes Mellitus Type 1, Diabetes Mellitus Type 2, Hyperlipidemia, Hypertension, Internal Pacemaker, MRSA *Have you ever received a pneumonia vaccine?: No *Have you received a flu vaccine this season?: Yes Other 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: Denies: Blood Transfusion Reaction Anesthesia experience/problems:: None Laterality Cases: Bilateral: Tonsillectomy Other Surgeries: Yes: Cholecystectomy, Diagnostic Lap. No: Pacemaker Amputation: No Fractures: No - *Social History Last grade of school completed: High school graduate Smoking Status: Current some day smoker Alcohol Intake: never Substance Use Type: crack/cocaine, heroin, methamphetamine *Occupational Status:: employed Housing: apartment Household Members: significant other *Travel in the last 8 weeks: None - Psychiatric History Pschychiatric History:: Reports:: Anxiety, Depression Family Hx:: Cancer, Tuberculosis, Stroke, Hypertension, Asthma
--- NOTE | 2021-04-21 08:14 | P.OP_ITS ---
Date of procedure: 04/21/21 Pre-op Diagnosis:: Menorrhagia Post-op Diagnosis:: Menorrhagia Procedure performed:: Hysteroscopy, dilation and curettage, NovaSure ablation Surgeon:: Regan Lucas MD RECORD RETRIEVAL SPECIALIST:: Other (Sorin Horta) Anesthesia: LMA Estimated blood loss (mL): 100 Clinical Note:: She is a 30-year-old lady who complains of extremely heavy periods. After having discussed the risks and benefits we elected perform a NovaSure ablation. Operative findings:: She had a normal-appearing endometrial cavity. There was some lush posterior endometrium that was somewhat erythematous. It is possible she had mild endometritis. Otherwise the endometrium was thin. Operative note:: She was taken to the operating room where LMA anesthesia was found be adequate. She was prepped and draped in the normal sterile fashion in the lithotomy position. A weighted speculum was placed in the vagina and the anterior lip of the cervix was grasped with a tenaculum. The cervix was then dilated to approximately 6 mm. I then inserted a hysteroscope into the uterine cavity and the findings were as previously dictated. I then performed a gentle curettage with a medium curette. I then sounded the uterus and determine the length of the uterus. I then inserted the NovaSure device and determine the width of the endometrial cavity. The endometrial cavity length was found to be 6.5 cm and the width was 4.3 cm. This was placed into the NovaSure device. I then ran the device through its program. I further inspected the endometrial cavity and was found to be completely charred. I then injected 30 cc of 0.5% ropivacaine at the 3:00, 5:00, 7:00, and 9:00 positions of the cervix. She tolerated procedure well and was taken to the recovery room in excellent condition. All sponge and instrument counts were correct. The estimated blood loss was less than 100 cc. Condition: stable Disposition: PACU Specimens:: Endometrial curettings Complications:: None
--- NOTE | 2021-04-21 08:25 | HMH.ANESI ---
[facility] Anesthesia Record Part I Intake, IV Amount: 200 Estimated blood loss (mL): 40 Urine output (mL): 50 Blood Pressure: 143/86 SaO2: 92 Pulse Rate: 82 Respiratory Rate: 14 Temperature: 97.1 F Patient is:: Drowsy
--- NOTE | 2021-04-21 08:58 | SUR.PHASEI ---
[id number] detailed report given to AMNA Alvares 0853 Pt transported via stretcher to post op. Pt is in stable condition and left in care of Rito Lee RN at bedside.
--- NOTE | 2021-04-21 09:39 | P.PN_ITS ---
[facility] Anesthesia Record Part II Discharge Time: 08:53 Destination: Surgical Day Care (OP Surgery) PACU nurse assessment reviewed?: Yes Patient Condition:: Good Anesthesia Complications:: None Swallowing reflex intact?: Yes Cyanosis?: No Blood Pressure: 123/73 Pulse Rate: 78 Temperature: 97.4 F Mental Status: Alert & Oriented Pain level:: 0 Nausea and/or vomitting:: None Intake, IV Amount: 0
== END 2021-04-21 10:10 | disposition home or self-care (01) ==
LOC: OR 06:01
PROVIDERS: PCP Internal Medicine Adolescent Medicine; Visit Provider Nurse Practitioner Obstetrics & Gynecology
PROC: 0U5B8ZZ Destruction of Endometrium, Via Natural or Artificial Opening Endoscopic (ICD-10-PCS; CPT 58563; principal; 2021-04-21 07:30)
DX: N92.0 Excessive and frequent menstruation with regular cycle (principal); F41.9 Anxiety disorder, unspecified; F32.A Depression, unspecified; K21.9 Gastro-esophageal reflux disease without esophagitis; R56.9 Unspecified convulsions; Z85.41 Personal history of malignant neoplasm of cervix uteri; Z80.9 Family history of malignant neoplasm, unspecified; Z82.5 Family history of asthma and other chronic lower respiratory diseases; Z82.49 Family history of ischemic heart disease and other diseases of the circulatory system; Z82.3 Family history of stroke
CPT/HCPCS: 58563; 96374; J2405

== ENCOUNTER 2021-06-30 14:33 | Emergency (ER) | payer OTHER, SELFPAY ==
[2021-06-30 16:10] VITALS: BP 141/99; PULSE 79; RESP 19; TEMP 36.6; O2SAT 98; BMI 25.7
[2021-06-30 16:21] LABS: Adenovirus,PCR Not Detected (NotDetected); Bordetella Pertussis Not Detected (NotDetected); Chlamydophila Pneumoniae, PCR Not Detected (NotDetected); Coronavirus 19, PCR Not Detected (NotDetected); Coronavirus 229E Not Detected (NotDetected); Coronavirus NL63 Not Detected (NotDetected); Coronavirus OC43 Not Detected (NotDetected); Coronovirus HKU1,PCR Not Detected (NotDetected); Human Metapneumovirus Not Detected (NotDetected); Influenza A, PCR Not Detected (NotDetected); Influenza AH1, 2009 Not Detected (NotDetected); Influenza AH1, PCR Not Detected (NotDetected); Influenza AH3,PCR Not Detected (NotDetected); Influenza B, PCR Not Detected (NotDetected); Mycoplasma Pneumoniae, PCR Not Detected (NotDetected); Parainfluenza 1, PCR Not Detected (NotDetected); Parainfluenza 2, PCR Not Detected (NotDetected); Parainfluenza 3, PCR Not Detected (NotDetected); Parainfluenza 4, PCR Not Detected (NotDetected); Respiratory Syncytial Virus Not Detected (NotDetected); Rhinovirus/Enterovirus Not Detected (NotDetected)
--- NOTE | 2021-06-30 16:52 | HMH.EDUTC ---
[facility] [place] Disposition Clinical Impression: Migraine Qualifiers: Migraine type: unspecified Status migrainosus presence: without status migrainosus Intractability: not intractable Qualified Code(s): G43.909 - Migraine, unspecified, not intractable, without status migrainosus Disposition: Home, Self-Care Condition on Discharge: Good Instructions: Migraine -- Adult, DI for Migraine Additional Instructions: Go home and sleep off remainder of migraine headache Return if needed Straight to ER if worse headache of your life or any life threatening symptoms Drink extra fluids with and between meals. If you have difficulty drinking, try very small amounts of water or suck on ice chips. ? Avoid fruit juices, as these do not replace minerals and can actually increase diarrhea. ? Children and adults can use sports drinks to replenish electrolytes. Younger children and infants should use products formulated for children, like oral rehydration solutions. ? Eat food in small amounts and let your stomach recover. ? Get lots of rest. You may feel tired or weak. ? No greasy or fried foods for the next 24-48 hours BRAT diet Bananas Rice Apples and [place] ? Make sure to drink plenty of liquids ? Return if needed ? Straight to ER if any life threatening symptoms ? Zofran as prescribed ? Follow up with family doctor in the next 48-72 hours if no improvement or any worsening of symptoms Prescriptions: Ondansetron [Zofran 4mg ODT] 4 mg PO TIDP PRN #10 tab PRN Reason: Nausea Transmission Status: Re[facility] Referrals: Jessika Otero APRN [Primary Care Provider] - As needed Forms: Work/School Release Time of Disposition: 17:03 Medical Decision Making - Bo Inquiry Pt receiving controlled substance: No Bo was queried for this patient: No Vital Signs: 06/30/21 16:10 06/30/21 17:14 Temperature 97.9 F 97.9 F Temperature Source Oral Pulse Rate 79 Pulse Rate [Right Brachial] 79 Respiratory Rate 19 19 Blood Pressure 141/99 H Blood Pressure [Right Arm] 141/99 H Blood Pressure Mean [Right Arm] 113 Blood Pressure Source [Right Arm] Automatic Cuff Blood Pressure Position [Right Arm] Sitting 02 Sat by Pulse Oximetry 98 Oxygen Delivery Method Room Air Orders (Tests/Meds): ED MEDICATIONS Discontinued Medications Generic Name Dose Route Start Last Admin Trade Name Freq PRN Reason Stop Dose Admin Diphenhydramine HCl 25 mg 06/30/21 17:00 06/30/21 17:14 Diphenhydramine 50mg/Ml Vial IM 06/30/21 17:01 25 mg ONCE ONE Administration Ketorolac Tromethamine 60 mg 06/30/21 17:00 06/30/21 17:14 Ketorolac 60mg/2ml Vial IM 06/30/21 17:01 60 mg ONCE ONE Administration ORDERS Category Date Time Status Full Resp Panel w/COVID ([facility]) Routine Lab 06/30/21 16:11 Received Medical Decision Narrative: Patient reports that she had a tubal and ablasion Patient states that headache is much better now [facility] [place] HPI - General Stated complaint: h/a, vomiting, diarrhea Time Seen by Provider: 06/30/21 16:52 Mode of Arrival: Ambulatory Source of Information: Patient Limitations: No Limitations Description of Symptoms (Recalled from Triage Doc. by RN): PATIENT C/O VOMITING, MIGRAINE, AND DIARRHEA X 3 DAYS HEENT Symptoms (Recalled from RN notes): Yes Resp Symptoms (Recalled from RN notes): No Skin Symptoms (Recalled from RN notes): No MS Symptoms (Recalled from RN notes): No Functional Status (Recalled from RN notes): WNL - History of Present Illness Provider Complaint: Patient states that she has a history of migraine headaches States that she has been having N/V/D States that she had zofran at home and took it and it did help with her N/V States that she thinks the vomiting triggered her migraine headache States that it is like others that she has had in the past Denies vision changes and denies worse headache of her life - Related Data Home Medications Medication Instructions R
[2021-06-30 17:14] VITALS: BP 141/99; PULSE 79; RESP 19; TEMP 36.6; O2SAT 98
== END 2021-06-30 17:43 | disposition home or self-care (01) ==
PROVIDERS: Emergency Provider Nurse Practitioner; PCP Nurse Practitioner Family
DX: G43.909 Migraine, unspecified, not intractable, without status migrainosus (principal)
CPT/HCPCS: 87581; 87632; 87798; 96372; 99213; C9803; G0463; U0003; U0005

== ENCOUNTER 2021-07-27 16:34 | Emergency (ER) | payer OTHER, SELFPAY ==
[2021-07-27 16:35] VITALS: BP 115/87; PULSE 86; RESP 18; TEMP 36.6; O2SAT 98; BMI 28.1
--- NOTE | 2021-07-27 16:49 | HMH.EDGENADL ---
ED Disposition Clinical Impression: Left ureteral calculus Disposition: Home, Self-Care Condition on Discharge: Fair Instructions: DI for Kidney Stones Additional Instructions: Flomax as prescribed. Toradol as needed for pain. Zofran as needed for nausea. Bentyl, Pepcid as prescribed. Additional instructions for KIDNEY STONE (URETERAL CALCULUS): Follow-up with urologist tomorrow as instructed for further evaluation. Drink plenty of fluids. Strain your urine and save any stones you catch. Return immediately if you develop a fever or have uncontrollable vomiting or uncontrollable pain. Prescriptions: Dicyclomine HCl [Bentyl 10mg capsule] 10 mg PO Q6HP PRN #12 cap PRN Reason: Cramping Transmission Status: Pending to [facility] Ketorolac Tromethamine [Toradol 10mg tablet] 10 mg PO Q6HP PRN #12 tab PRN Reason: Moderate Pain Transmission Status: Pending to [facility] Tamsulosin HCl [Flomax 0.4mg capsule] 0.4 mg PO HS #10 cap Transmission Status: Pending to [facility] Famotidine [Pepcid 20mg Tablet] 20 mg PO BID 5 Days #10 tab Transmission Status: Pending to [facility] Ondansetron [Zofran 4mg ODT] 4 mg PO TIDP PRN #10 tab PRN Reason: Nausea And Vomiting Transmission Status: Pending to [facility] Referrals: Ryan Harper MD [Primary Care Provider] - - Critical Care Critical Care Time: No Attestation: On 07/27/21, the high probability of a clinically significant, sudden or life threatening deterioration of the following system(s) required my full and direct attention, intervention and personal management. The time I documented below is in addition to time spent performing reported procedures but includes the following listed in this critical care notation. Medical Decision Making - Bo Inquiry Pt receiving controlled substance: No Vital Signs: 07/27/21 16:35 Temperature 98 F Temperature Source Oral Pulse Rate [Radial] 86 Respiratory Rate 18 Blood Pressure [Right Arm] 115/87 Blood Pressure Mean [Right Arm] 96 Blood Pressure Position [Right Arm] Sitting 02 Sat by Pulse Oximetry 98 Oxygen Delivery Method Room Air Orders (Tests/Meds): ED MEDICATIONS Discontinued Medications Generic Name Dose Route Start Last Admin Trade Name Irish PRN Reason Stop Dose Admin Ondansetron HCl 4 mg 07/27/21 16:54 Ondansetron 4mg/5ml Aura Udc PO 07/27/21 16:55 ONCE ONE General Adult HPI - General Chief complaint: PAIN Stated complaint: kidney stones Time Seen by Provider: 07/27/21 16:51 Mode of Arrival: Ambulatory Limitations: No Limitations Description of Symptoms (Recalled from ER Triage Doc. by RN): to ed per pvt car with c/o lt side flank pain starting at 8:30 today seen at [facility] and dx with kidney stone. pt states her script [place] pharmacy which is now closed. c/o nausea, vomiting. - History of Present Illness HPI narrative: States she is passing a kidney stone, left side. Symptoms started this morning. Left flank pain with vomiting and trace hematuria. Seen at [facility] emergency department this morning. CT scan and brings in the disc and radiologist report. She has a 3 mm left UVJ stone. She was treated with Toradol in the emergency department. 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 She was given prescriptions for ketorolac, Pepcid, dicyclomine, Flomax, and Zofran. These were transmitted to her pharmacy, which is [place] [facility], but it is closed today. She called back to the hospital but the hospital was then closed because of a gas leak. She therefore came to the emergency department here to get new prescriptions. She states last dose of Toradol was about 9:30 AM. She has been referred to a urologist. - Related Data Home Medications Medication Instructions Recorded Confirmed Amitriptyline HCl [Elavil 10mg 10 mg PO DAILY 06/30/21 06/30/21 ta
[2021-07-27 17:01] VITALS: BP 108/68
[2021-07-27 17:11] VITALS: BP 125/74; PULSE 78; RESP 18; TEMP 36.6; O2SAT 98
== END 2021-07-27 17:13 | disposition home or self-care (01) ==
PROVIDERS: Emergency Provider Emergency Medicine; PCP Emergency Medicine
DX: N20.1 Calculus of ureter (principal); R31.9 Hematuria, unspecified
CPT/HCPCS: 99283; J2405

== ENCOUNTER → 2021-08-28 08:59 | Outpatient (CLI) | payer OTHER, SELFPAY | PROVIDERS: PCP Emergency Medicine; Visit Provider Emergency Medicine | DX: Z20.822 Contact with and (suspected) exposure to COVID-19 (principal) | CPT/HCPCS: C9803; U0003; U0005 ==

== ENCOUNTER → 2021-09-10 13:31 | Outpatient (CLI) | payer OTHER, SELFPAY ==
[2021-09-10 12:54] LABS: Adenovirus,PCR Not Detected (NotDetected); Bordetella Pertussis Not Detected (NotDetected); Chlamydophila Pneumoniae, PCR Not Detected (NotDetected); Coronavirus 19, PCR Not Detected (NotDetected); Coronavirus 229E Not Detected (NotDetected); Coronavirus NL63 Not Detected (NotDetected); Coronavirus OC43 Not Detected (NotDetected); Coronovirus HKU1,PCR Not Detected (NotDetected); Human Metapneumovirus Not Detected (NotDetected); Influenza A, PCR Not Detected (NotDetected); Influenza AH1, 2009 Not Detected (NotDetected); Influenza AH1, PCR Not Detected (NotDetected); Influenza AH3,PCR Not Detected (NotDetected); Influenza B, PCR Not Detected (NotDetected); Mycoplasma Pneumoniae, PCR Not Detected (NotDetected); Parainfluenza 1, PCR Not Detected (NotDetected); Parainfluenza 2, PCR Not Detected (NotDetected); Parainfluenza 3, PCR Not Detected (NotDetected); Parainfluenza 4, PCR Not Detected (NotDetected); Respiratory Syncytial Virus Not Detected (NotDetected); Rhinovirus/Enterovirus Not Detected (NotDetected)
== END ==
PROVIDERS: PCP Physician Assistant; Visit Provider Physician Assistant
DX: Z20.822 Contact with and (suspected) exposure to COVID-19 (principal); R09.81 Nasal congestion
CPT/HCPCS: 87581; 87632; 87798; C9803; U0003; U0005

== ENCOUNTER 2022-04-26 11:51 | Emergency (ER) | payer OTHER, SELFPAY ==
[2022-04-26 12:15] VITALS: BP 159/93; PULSE 82; RESP 22; TEMP 36.6; O2SAT 99; BMI 29.2
[2022-04-26 12:31] VITALS: BP 159/93; PULSE 82; RESP 22; TEMP 36.6; O2SAT 99
[2022-04-26 12:42] LABS: UTC Strep Screen (Rapid) Negative (Negative)
--- NOTE | 2022-04-26 12:58 | EXP.UTC ---
Discharge Plan Disposition Patient Disposition: Home, Self-Care Condition: Good Prescriptions Prescriptions: No Action No Known Home Medications Referrals Follow up/Referrals: Brigitte Prado PA [Primary Care Provider] - See instructions Activity Restrictions/Add. Instructions Additional Instructions/Restrictions: covid swab was sent to lab, call tomorrow for results. self isolate until test results are known to be negative No sign of a bacterial infection. Likely viral. Viruses can take 7-14 days to run their course. Nasal saline and bulb syringe or nose Arlene to remove nasal drainage to help with nasal congestion. Hard to eat, drink, sleep with nasal congestion so important to keep this cleaned out. Monitor temp. Tylenol or Motrin as needed for pain or fever Encourage fluids, water, Gatorade, Powerade, Pedialyte if /toddler/child Warm salt water gargles Warm fluids Sore throat lozenges Sleep elevated Humidifier/vaporizer Follow-up immediately for new or worsening symptoms or no noticeable improvement over the next 48-72 hours. Clinical Impressions Clinical Impression: Upper respiratory infection Instructions Patient Instructions: DI for Viral Upper Respiratory Infection -- Adult Discharge ED Provider: Shanna (RUST)Jessika [facility] HPI General Stated complaint: Sore throat, ear pain, congestion, no appetite Mode of Arrival: Ambulatory Source of Information: Patient Limitations: No Limitations Time Seen by Provider: 04/26/22 12:58 Description of Symptoms (Recalled from Triage Doc. by RN): PATIENT C/O SORE THROAT, COUGH, CONGESTION, EAR PAIN AND DECREASED APPETITE HEENT Symptoms (Recalled from RN notes): Yes Resp Symptoms (Recalled from RN notes): Yes Skin Symptoms (Recalled from RN notes): No MS Symptoms (Recalled from RN notes): No Functional Status (Recalled from RN notes): WNL History of Present Illness Provider Complaint: 31 yr old female presents for sore throat,congestion,cough and decrease natalie for 2 days Related Data Home Medications Medication Instructions Recorded Confirmed No Known Home Medications 11/10/21 11/10/21 Allergies Allergy/AdvReac Type Severity Reaction Status Date / Time cephalexin [From KEFLEX] Allergy Unknown Verified 10/30/21 13:16 morphine [MORPHINE] Allergy Unknown Verified 10/30/21 13:16 promethazine [From PHENERGAN] Allergy Unknown Verified 10/30/21 13:16 tetanus toxoid, adsorbed Allergy Unknown Verified 10/30/21 13:16 [TETANUS TOXOID, ADSORBED] Worker's Comp Is this a Worker's Comp case?: No [facility] Disclaimer: The information contained in this section may have been updated after the patient was seen, as this information can be updated by other users. 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) Smoking Status: Never smoker second hand exposure: No alcohol intake: never substance use type: crack/cocaine, heroin and methamphetamine current occupational status: other Travel in the last 8 weeks: None household members: significant other housing: apartment caffeine: Yes ROS Obtained: Yes All systems reviewed & no additional complaints except as documented Constitutional Constitutional: Reports system reviewed and no additional complaints, except as documented, Reports as per HPI, Reports headache(s) and Reports poor appetite Eyes Eyes: Reports system reviewed and no additional complaints, except as documented and Reports as per HPI ENT Ears, Nose, Mouth, and Throat: Reports system reviewed and no additional complaints, except as documented, Reports as per HPI, Repo
== END 2022-04-26 13:11 | disposition home or self-care (01) ==
PROVIDERS: Emergency Provider Nurse Practitioner Family; PCP Physician Assistant
DX: J06.9 Acute upper respiratory infection, unspecified (principal); R07.0 Pain in throat; F14.10 Cocaine abuse, uncomplicated; Z20.822 Contact with and (suspected) exposure to COVID-19
CPT/HCPCS: 87880; 99212; 99213; C9803; G0463; U0003; U0005

== ENCOUNTER 2022-06-05 12:16 | Emergency (ER) | payer OTHER, SELFPAY ==
[2022-06-05 12:40] VITALS: BP 137/70; PULSE 65; RESP 18; TEMP 36.7; O2SAT 100; BMI 29.7
--- NOTE | 2022-06-05 13:07 | EXP.UTC ---
Discharge Plan Disposition Patient Disposition: Home, Self-Care Condition: Good Prescriptions Prescriptions: New fluticasone propionate [Flonase Allergy Relief] 50 mcg/actuation spray,suspension 1 - 2 spray intranasal DAILY Qty: 16 0RF Rx Instructions: administer into each nostril azithromycin [Zithromax Z-Guillermo] 250 mg tablet See Rx Instructions .ROUTE .COMPLEX 5 Days Qty: 6 0RF Rx Instructions: For 250 mg dose pack: take 500 mg today (day 1), then 250 mg for 4 days (days 2-5) Referrals Follow up/Referrals: Ryan Harper MD [Primary Care Provider] - See instructions Activity Restrictions/Add. Instructions Additional Instructions/Restrictions: *Monitor Temp, Over the counter Motrin or Tylenol as directed/as needed Tylenol every 4 hours and Motrin every 6 hours (as long as your family doctor has told you that you can take it) for fever or pain. and straight to ER if unable to lower temp less than 101.0 after medication given *Warm salt water gargles may help to soothe the throat *Throat Lozenges? *Warm fluids like tea with honey may help to soothe the throat? *Sleep elevated *Humidifier/Vaporizer Take medication as prescribed Follow up IMMEDIATELY for new or worsening symptoms or no Noticeable improvement over the next 48-72 hours. 911 for difficulty breathing or swallowing Clinical Impressions Clinical Impression: Sinusitis Instructions Patient Instructions: DI for Sinusitis, Sinusitis Discharge ED Provider: Rachana Brown [facility] General Stated complaint: congestion, no appetite Mode of Arrival: Ambulatory Source of Information: Patient Limitations: No Limitations Time Seen by Provider: 06/05/22 13:07 Description of Symptoms (Recalled from Triage Doc. by RN): congested, bad cough, no appetite HEENT Symptoms (Recalled from RN notes): Yes Resp Symptoms (Recalled from RN notes): No Skin Symptoms (Recalled from RN notes): No MS Symptoms (Recalled from RN notes): No Functional Status (Recalled from RN notes): n/a History of Present Illness Provider Complaint: Patient states that she has been having sinus pressure and drainage along with cough on and off States that she feels like she has a bad sinus infection Related Data Previous Rx's Medication Instructions Recorded azithromycin 250 mg tablet See Rx Instructions PO .COMPLEX 5 06/05/22 (Zithromax Z-Guillermo) days #6 tabs fluticasone propionate 50 1 - 2 spray intranasal DAILY #16 06/05/22 mcg/actuation nasal grams spray,suspension (Flonase Allergy Relief) Allergies Allergy/AdvReac Type Severity Reaction Status Date / Time cephalexin [From KEFLEX] Allergy Unknown Verified 06/05/22 12:50 morphine [MORPHINE] Allergy Unknown Verified 06/05/22 12:50 promethazine [From PHENERGAN] Allergy Unknown Verified 06/05/22 12:50 tetanus toxoid, adsorbed Allergy Unknown Verified 06/05/22 12:50 [TETANUS TOXOID, ADSORBED] Worker's Comp Is this a Worker's Comp case?: No [facility] Disclaimer: The information contained in this section may have been updated after the patient was seen, as this information can be updated by other users. 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
[2022-06-05 13:31] VITALS: BP 137/70; PULSE 65; RESP 18; TEMP 36.7; O2SAT 100
== END 2022-06-05 13:31 | disposition home or self-care (01) ==
PROVIDERS: Emergency Provider Nurse Practitioner; PCP Emergency Medicine
DX: J01.90 Acute sinusitis, unspecified (principal)
CPT/HCPCS: 99212; 99214; G0463

== ENCOUNTER 2022-08-18 09:50 | Emergency (ER) | payer OTHER, SELFPAY ==
[2022-08-18 09:51] VITALS: BP 136/101; PULSE 101; RESP 17; TEMP 36.4; O2SAT 98; BMI 23.6
--- NOTE | 2022-08-18 10:15 | MR_ITS ---
FINAL REPORT CLINICAL HISTORY: IDU; midline back pain. R/O ABSCESS COMPARISON: None FINDINGS: Multiplanar MR imaging of the lumbar spine was performed without and with contrast. On the sagittal T2-weighted images, disc degeneration is seen at the L1-2 level. The vertebral alignment is normal. There is no evidence of fracture. The conus is seen at approximately the L1 level and has an unremarkable appearance. L1-2: An annular bulge is present. There is a left paracentral disc protrusion present. No significant canal stenosis or neuroforaminal narrowing is seen. L2-3: No significant canal stenosis or neuroforaminal narrowing is seen. L3-4:No significant canal stenosis or neuroforaminal narrowing is seen. L4-5: No significant canal stenosis or neuroforaminal narrowing is seen. L5-S1: No significant canal stenosis or neuroforaminal narrowing is seen. There is partial lumbarization of the S1 vertebral body as a normal variant. No abnormal contrast enhancement is identified. IMPRESSION: Disc bulge and left paracentral disc protrusion at the L1-2 level. Otherwise unremarkable MRI of the lumbar spine. Specifically no evidence of enhancement to suggest an abscess is seen. Reviewed, Interpreted and Dictated by Chava Flanagan III, MD Transcribed by Dayana Puente Authenticated and [facility]
--- NOTE | 2022-08-18 10:15 | MR_ITS ---
FINAL REPORT CLINICAL HISTORY: IDU; midline back pain FINDINGS: Multiplanar MR imaging of the thoracic spine was performed without and with contrast. On the sagittal T2-weighted images, disc degeneration is seen at T12-L1. There is no evidence of fracture. The vertebral alignment is normal. No bony mass is identified. The thoracic spinal cord has an unremarkable appearance without evidence of mass, edema or syrinx. There is no evidence of significant canal stenosis. On the axial images, there is an annular bulge with left paracentral disc protrusion indenting the thecal sac at T12-L1. No significant canal stenosis is identified. On the postcontrast images, no abnormal contrast enhancement is identified. IMPRESSION: Left paracentral disc protrusion indents the thecal sac at T12-L1. No abnormal contrast enhancement identified. Reviewed, Interpreted and Dictated by Chava Flanagan III, MD Transcribed by Bryant Anderson Authenticated and [facility]
--- NOTE | 2022-08-18 10:15 | PC.NURSE ---
MRI with contrast for T and L spine to r/o abscess approved per care management, spoke with Marsha. spoke with Kelsie in MRI, working on a time slot for pt. States pt will need to be in MRI for sometime to work her into her schedule.
--- NOTE | 2022-08-18 10:17 | HMH.EDGENADL ---
Discharge Plan Disposition Patient Disposition: Home, Self-Care Prescriptions Prescriptions: New ibuprofen 800 mg tablet 800 mg PO TID PRN (Reason: pain) 7 Days Qty: 20 0RF cyclobenzaprine 5 mg tablet 5 mg PO TID PRN (Reason: muscle spasm) 5 Days Qty: 15 0RF No Action amitriptyline 10 mg tablet 10 mg PO DAILY Qty: 30 2RF Referrals Follow up/Referrals: Brigitte Prado PA [Primary Care Provider] - See instructions Activity Restrictions/Add. Instructions Additional Instructions/Restrictions: Call [phone] to make an appointment with Dr. [place] at the [facility] which is a clinic that can deal with all of your substance and medical needs including evaluation of possible recurrent HCV. Clinical Impressions Clinical Impression: Back pain, Uses drugs by injection, Herniated disc Instructions Patient Instructions: DI for Low Back Pain Discharge ED Provider: Juliano Magaña General Adult HPI General Chief complaint: Back Pain/Injury Stated complaint: Lower back/kidney pain, phys ref Time Seen by Provider: 08/18/22 10:07 History of Present Illness HPI narrative: Patient is a 32-year-old female presenting with lower back pain. She has a history of injection drug use most recently used yesterday. She also has a history of hepatitis C that is been previously treated. She states this pain is located in the midline lower aspect of her spine and a low bit off to the left. No radiation to the anterior aspect. She has a history of kidney stones and states this feels very different. No fevers or chills, urinary or bowel incontinence, urinary retention, saddle anesthesia, lower extremity weakness. Related Data Previous Rx's Medication Instructions Recorded amitriptyline 10 mg tablet 10 mg PO DAILY #30 tabs 07/28/22 cyclobenzaprine 5 mg tablet 5 mg PO TID PRN muscle spasm 5 08/18/22 days #15 tabs ibuprofen 800 mg tablet 800 mg PO TID PRN pain 7 days #20 08/18/22 tabs Allergies Allergy/AdvReac Type Severity Reaction Status Date / Time cephalexin [From KEFLEX] Allergy Unknown Verified 08/18/22 09:21 morphine [MORPHINE] Allergy Unknown Verified 08/18/22 09:21 promethazine [From PHENERGAN] Allergy Unknown Verified 08/18/22 09:21 tetanus toxoid, adsorbed Allergy Unknown Verified 08/18/22 09:21 [TETANUS TOXOID, ADSORBED] [facility] Disclaimer: The information contained in this section may have been updated after the patient was seen, as this information can be updated by other users. 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 Anxiety and depression Breast pain, right Ovarian cyst Post endometrial ablation syndrome Surgical History H/O tubal ligation History of appendectomy History of cholecystectomy Social History Smoking Status: Never smoker second hand exposure: No alcohol intake: never substance use type: crack/cocaine, heroin and methamphetamine current occupational status: other Travel in the last 8 weeks: None household members: significant other housing: apartment caffeine: Yes ROS Obtained: Yes All systems reviewed & no additional complaints except as documented Physical Exam General General appearance: alert Respiratory Respiratory exam: Present normal lung sounds bilaterally Cardiovascular Cardiovascular exam: Present regular rate; Absent tachycardia Back Exam Back exam: Present other (Midline L-spine tenderness normal lower extremity strength and sensation) Neurological Exam Neurological exam: Present alert Medical Decision Making Bo Inquiry Pt receiving controlled substance: No Vital Signs: 08/18/22 09:51 08/18/22 12:30 08/18/22 13:00 Temperature 97.5 F L Temperature Source Oral Pulse Rate 87 86 Pulse Rate [Left Radial] 101 H Respiratory Rate 17
--- NOTE | 2022-08-18 10:38 | PC.NURSE ---
multiple unsuccessful attempts at an IV. MD at bedside at this time for US guided IV
--- NOTE | 2022-08-18 10:45 | PC.NURSE ---
PT to radiology via wheelchair
--- NOTE | 2022-08-18 10:46 | PC.NURSE ---
PT to MRI
[2022-08-18 11:07] LABS: Basophils % 0.7 % (0.1-2.0); Eosinophils # 0.1 K/mm3 (0.0-0.4); Eosinophils % 1.8 % (0.1-12.0); Hematocrit 50.8 % (37.0-47.0); Hemoglobin 16.7 g/dL (12.2-16.2); Lymphocytes # 2.6 K/mm3 (0.7-4.5); Lymphocytes % 43.3 % (10-50); Mean Corpuscular HGB Conc 32.9 g/dL (31.8-35.4); Mean Corpuscular Hemoglobin 28.5 pg (27.0-31.2); Mean Corpuscular Volume 86.7 fl (81-99); Mean Platelet Volume 7.8 fl (7.4-10.4); Monocytes # 0.4 K/mm3 (0.1-1.0); Monocytes % 7.2 % (1.7-9.3); Neutrophils # 2.8 K/mm3 (1.8-7.8); Platelet Count 311 K/mm3 (142-424); Red Blood Count 5.86 M/mm3 (4.20-5.40); Red Cell Distribution Width 13.8 % (11.5-17.5)
--- NOTE | 2022-08-18 11:07 | PC.NURSE ---
established 20G IV in the right AC via US. Labs were drawn and sent up.
[2022-08-18 11:31] LABS: Alanine Aminotransferase 26 U/L (12-78); Albumin Level 4.6 g/dl (3.5-5.0); Albumin/Globulin Ratio 1.2 (1.1-1.8); Alkaline Phosphatase 104 U/L (38-126); Anion Gap 12.6 mEq/L (5-15); Aspartate Amino Transferase 32 U/L (14-36); Bilirubin,Total 0.9 mg/dl (0.2-1.3); Blood Urea Nitrogen 9 mg/dl (7-17); Carbon Dioxide 27 mmol/L (22.0-30.0); Chloride 104 mmol/L (98-107); Creatinine Clearance Estimated 71 mL/min (50-200); Estimated Glomerular Filt Rate 72 ml/min (>60); GFR (African American) 87 ML/MIN (>60); Globulin 3.8 g/dL (1.3-3.2); Glucose 75 mg/dl (74-100); Potassium 3.6 mmoL/L (3.5-5.1); Sodium 140 mmol/L (136-145); Total Protein,Serum 8.4 g/dl (6.3-8.2)
[2022-08-18 11:36] LABS: C-Reactive Protein 10.3 mg/L (0-4)
--- NOTE | 2022-08-18 11:41 | PC.NURSE ---
pt still in MRI at this time
[2022-08-18 11:48] LABS: Erythrocyte Sedimentation Rate 10 mm/hr (0-20)
--- NOTE | 2022-08-18 12:16 | PC.NURSE ---
contacted MRI to check on pt- spoke with portia reports pt has just a few minutes left on scan.
--- NOTE | 2022-08-18 12:24 | PC.NURSE ---
pt return from MRI
[2022-08-18 12:30] VITALS: BP 121/77; PULSE 87; O2SAT 100
--- NOTE | 2022-08-18 12:34 | PC.NURSE ---
pt given warm blanket, IVF infusing, call martinez in reach
[2022-08-18 13:00] VITALS: BP 116/81; PULSE 86; O2SAT 98
[2022-08-18 13:25] LABS: Microscopic, Urine URINE MICROSCOPIC (MICROSCOPIC)
[2022-08-18 13:27] LABS: Appearance,Urine CLEAR (Clear); Bilirubin,Urine Negative (Negative); Blood, Urine Negative (Negative); Color,Urine YELLOW (Yellow); Glucose,Urine (UA) Negative (Negative); Ketones,Urine TRACE (Negative); Leukocyte Esterase,Urine Negative (Negative); Nitrate,Urine Negative (Negative); Protein,Urine Negative (Negative)
[2022-08-18 13:38] LABS: Squamous Epithelial Cell,Urine Occasional #/hpf (0-5); WBC,Urine Occasional #/hpf (0-3)
[2022-08-18 13:43] LABS: HCG Qualitative, Serum Negative (Negative)
[2022-08-18 13:49] VITALS: BP 113/77; PULSE 87; RESP 17; TEMP 37.1; O2SAT 99
== END 2022-08-18 13:50 | disposition home or self-care (01) ==
PROVIDERS: Emergency Provider Student in an Organized Health Care Education/Training Program; PCP Physician Assistant
DX: M51.26 Other intervertebral disc displacement, lumbar region (principal); F41.9 Anxiety disorder, unspecified; F32.A Depression, unspecified
CPT/HCPCS: 72157; 72158; 80053; 81001; 84703; 85025; 85651; 86140; 96361; 96374; 96375; 99284; 99285; A9576; J2405

== ENCOUNTER → 2022-08-18 16:57 | Outpatient (CLI) | payer OTHER, SELFPAY | PROVIDERS: PCP Physician Assistant; Visit Provider Physician Assistant | DX: N23 Unspecified renal colic (principal) | CPT/HCPCS: 87086 ==

== ENCOUNTER 2022-09-09 10:00 | Outpatient (CLI) | payer OTHER, SELFPAY ==
[2022-09-09 10:05] VITALS: BMI 23.6
--- NOTE | 2022-09-09 10:43 | EXP.PHA.CONS ---
Pharmacy Consult Date: 09/09/22 Time: 10:44 Referring provider: NOMAN KING Reason for Consult:: VANCOMYCIN DOSING Allergies Allergy/AdvReac Type Severity Reaction Status Date / Time cephalexin [From KEFLEX] Allergy Unknown Verified 09/07/22 15:21 morphine [MORPHINE] Allergy Unknown Verified 09/07/22 15:21 promethazine [From PHENERGAN] Allergy Unknown Verified 09/07/22 15:21 tetanus toxoid, adsorbed Allergy Unknown Verified 09/07/22 15:21 [TETANUS TOXOID, ADSORBED] Home Medications Medication Instructions Recorded Confirmed Type amitriptyline 10 mg tablet 10 mg PO DAILY #30 tabs 07/28/22 09/07/22 Rx ibuprofen 800 mg tablet 800 mg PO TID PRN pain 7 days #20 08/18/22 09/07/22 Rx tabs sulfamethoxazole 200 20 ml PO BID 10 days #400 mL 09/07/22 09/07/22 Rx mg-trimethoprim 40 mg/5 mL oral suspension New Prescriptions to Start Prescriptions: Height: 1.45 m Weight: 49.442 kg Laboratory Results:: D 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: 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 (Updated 08/18/22 @ 13:36 by Juliano Magaña MD) Anxiety and depression Breast pain, right Ovarian cyst Post endometrial ablation syndrome Assessment and Plan Assessment and plan all Dx Assessment and Plan for all problems:: Pharmacokinetic dosing service Objective: Patient: Floor: Age: 48 yo Serum creatinine: 0.9 mg/dL Height: 57.1 Inches Weight (kg): 50 Assessment: IBW (kg): 43.30 Dosing wt(kg): 50 Estimated Creatinine clearance (ml/min): 51.1 CRCL method: Cockcroft and Gault using ibw(default). Drug selected: Vancomycin Loading dose (mg): 0 Vd (liters): 40.0 (factor used: 0.8 L/kg) Yaakov (hr-1): 0.047 Half life (hrs): 14.75 Recommended dose: 1000 mg Interval: 24 hrs Infusion time (hrs): 2.0 Predicted peak (mcg/mL): 35.3 Predicted trough (mcg/mL): 12.55 Total body weight is being used for vancomycin dosing. Recommendations: Give Vancomycin 1000 mg q 24 hrs with an expected Cpeak of 35.3 mcg/ml and an expected Ctrough of 12.55 mcg/ml. ----Vanco only - ignore for aminoglycosides----- CLvanco= 1.88 L/hr AUC 0-24 /AMOS Data: AMOS 0.5 mcg/mL: AUC/AMOS: 1063.8 AMOS 1.0 mcg/mL: AUC/AMOS: 531.9 --------- AMOS 1.5 mcg/mL: AUC/AMOS: 354.6 AMOS 2.0 mcg/mL: AUC/AMOS: 266.0
[2022-09-09 11:40] LABS: Basophils % 0.5 % (0.1-2.0); Eosinophils # 0.2 K/mm3 (0.0-0.4); Hematocrit 47.7 % (37.0-47.0); Hemoglobin 15.4 g/dL (12.2-16.2); Lymphocytes # 2.3 K/mm3 (0.7-4.5); Lymphocytes % 31.4 % (10-50); Mean Corpuscular HGB Conc 32.4 g/dL (31.8-35.4); Mean Corpuscular Hemoglobin 28.3 pg (27.0-31.2); Mean Corpuscular Volume 87.5 fl (81-99); Mean Platelet Volume 8.6 fl (7.4-10.4); Monocytes # 0.4 K/mm3 (0.1-1.0); Monocytes % 5.7 % (1.7-9.3); Neutrophils # 4.5 K/mm3 (1.8-7.8); Neutrophils % 60.3 % (37.0-80.0); Platelet Count 346 K/mm3 (142-424); Red Blood Count 5.45 M/mm3 (4.20-5.40); Red Cell Distribution Width 13.7 % (11.5-17.5); White Blood Count 7.4 K/mm3 (4.8-10.8)
[2022-09-09 12:55] VITALS: BP 135/85; PULSE 91; RESP 18; O2SAT 98
--- NOTE | 2022-09-09 14:18 | PC.NURSE ---
1220 - LINDSEY ROJAS RN ATTEMPTED IV INSERTION X1. ALMITA GALVAN RN ATTEMPTED IV INSERTION X3, TWICE USING ULTRASOUND. CANDACE GIMENEZ, WEB MARKETING ASSISTANT ATTEMPTED IV INSERTION X2. UNABLE TO OBTAIN IV ACCESS. PT CRYING, ASKING NOT TO BE STUCK ANYMORE. STRESSED IMPORTANCE OF RECEIVING IV ANTIBIOTICS FOR ABSCESS BUT PT STILL REFUSING TO BE STUCK ANYMORE. MADE CALL TO PROVIDER, NOMAN KING. (SEE PROVIDER NOTIFICATION)
== END 2022-09-09 13:15 | disposition home or self-care (01) ==
LOC: INF 10:01
PROVIDERS: PCP Physician Assistant; Visit Provider Physician Assistant
DX: L02.213 Cutaneous abscess of chest wall (principal)
CPT/HCPCS: 36415; 85025; 96372; J1335

== ENCOUNTER 2022-09-22 15:21 | Outpatient (CLI) | payer OTHER, SELFPAY ==
[2022-09-22 15:26] VITALS: BMI 23.6
--- NOTE | 2022-09-22 15:34 | PC.NURSE ---
1534-collected labs via venipuncture stick with butterfly in right ac.
[2022-09-22 15:40] LABS: Basophils % 0.3 % (0.1-2.0); Eosinophils # 0.1 K/mm3 (0.0-0.4); Eosinophils % 0.8 % (0.1-12.0); Hematocrit 43.1 % (37.0-47.0); Hemoglobin 14.4 g/dL (12.2-16.2); Lymphocytes # 1.2 K/mm3 (0.7-4.5); Lymphocytes % 18.6 % (10-50); Mean Corpuscular HGB Conc 33.4 g/dL (31.8-35.4); Mean Corpuscular Hemoglobin 29.5 pg (27.0-31.2); Mean Corpuscular Volume 88.4 fl (81-99); Mean Platelet Volume 6.8 fl (7.4-10.4); Monocytes # 0.3 K/mm3 (0.1-1.0); Neutrophils # 4.9 K/mm3 (1.8-7.8); Neutrophils % 75.3 % (37.0-80.0); Platelet Count 250 K/mm3 (142-424); Red Blood Count 4.87 M/mm3 (4.20-5.40); Red Cell Distribution Width 13.8 % (11.5-17.5); White Blood Count 6.5 K/mm3 (4.8-10.8)
[2022-09-22 15:55] VITALS: BP 123/88; PULSE 97; RESP 18; TEMP 37; O2SAT 99
== END 2022-09-22 15:55 | disposition home or self-care (01) ==
LOC: INF 15:22
PROVIDERS: PCP Physician Assistant; Visit Provider Physician Assistant
DX: L02.91 Cutaneous abscess, unspecified (principal)
CPT/HCPCS: 85025; 96372; J1335

== ENCOUNTER 2022-09-23 08:15 | Outpatient (CLI) | payer OTHER, SELFPAY ==
[2022-09-23 08:35] VITALS: BP 125/86; PULSE 90; RESP 16; TEMP 36.5; O2SAT 98
== END 2022-09-23 08:48 | disposition home or self-care (01) ==
PROVIDERS: PCP Physician Assistant; Visit Provider Physician Assistant
DX: L02.91 Cutaneous abscess, unspecified (principal)
CPT/HCPCS: 96372; J1335

== ENCOUNTER 2022-09-24 15:41 | Outpatient (CLI) | payer OTHER, SELFPAY ==
[2022-09-24 15:53] VITALS: BP 137/81; PULSE 97; RESP 16; TEMP 36.3; O2SAT 100
== END 2022-09-24 16:10 | disposition home or self-care (01) ==
LOC: INF 15:41
PROVIDERS: PCP Physician Assistant; Visit Provider Physician Assistant
DX: L02.91 Cutaneous abscess, unspecified (principal)
CPT/HCPCS: 96372; J1335

== ENCOUNTER 2022-09-25 08:11 | Outpatient (CLI) | payer OTHER, SELFPAY ==
[2022-09-25 08:38] VITALS: BP 152/94; PULSE 95; RESP 18; TEMP 36.4; O2SAT 100
== END 2022-09-25 08:38 | disposition home or self-care (01) ==
LOC: INF 08:12
PROVIDERS: PCP Physician Assistant; Visit Provider Physician Assistant
DX: L02.91 Cutaneous abscess, unspecified (principal); R22.1 Localized swelling, mass and lump, neck; L02.213 Cutaneous abscess of chest wall
CPT/HCPCS: 96372; J1335

== ENCOUNTER 2022-09-26 08:44 | Outpatient (CLI) | payer OTHER, SELFPAY ==
[2022-09-26 08:44] VITALS: BP 128/83; PULSE 85; RESP 14; TEMP 36.4; O2SAT 98
[2022-09-26 08:51] VITALS: BMI 22.4
== END 2022-09-26 09:14 | disposition home or self-care (01) ==
PROVIDERS: PCP Physician Assistant; Visit Provider Physician Assistant
DX: L02.213 Cutaneous abscess of chest wall (principal)
CPT/HCPCS: 96372; J1335

== ENCOUNTER 2022-09-27 08:11 | Outpatient (CLI) | payer OTHER, SELFPAY ==
[2022-09-27 08:15] VITALS: BP 131/93; PULSE 95; RESP 14; TEMP 36.6; O2SAT 98
[2022-09-27 08:44] VITALS: BP 135/89; PULSE 92; RESP 14; TEMP 36.6; O2SAT 98
== END 2022-09-27 08:50 | disposition home or self-care (01) ==
LOC: INF 08:12
PROVIDERS: PCP Physician Assistant; Visit Provider Physician Assistant
DX: L02.213 Cutaneous abscess of chest wall (principal); Z48.01 Encounter for change or removal of surgical wound dressing
CPT/HCPCS: 96372; G0463; J1335

== ENCOUNTER 2022-09-28 08:57 | Outpatient (CLI) | payer OTHER, SELFPAY ==
[2022-09-28 10:01] VITALS: BP 135/81; PULSE 82; RESP 18; TEMP 36.6; O2SAT 99
== END 2022-09-28 10:01 | disposition home or self-care (01) ==
LOC: INF 08:58
PROVIDERS: PCP Physician Assistant; Visit Provider Physician Assistant
DX: L02.213 Cutaneous abscess of chest wall (principal)
CPT/HCPCS: 96372; J1335

== ENCOUNTER → 2022-10-06 17:06 | Outpatient (CLI) | payer OTHER, SELFPAY ==
--- NOTE | 2022-10-06 | CA_ITS ---
APPROVED REPORT EXAM: Comprehensive 2D, Doppler, and color-flow Echocardiogram Social Studies Department Chair: Aimee Hayse CRT Ht: 4 ft 9 in Wt: 110lbs BSA: 1.40 BP: 136/86 mmHg Indications: Chest Pain, Shortness of Breath, Peripheral Edema, IVDU last time 2 days ago, has a neck abcess from injecting in neck vein from 3 wks ago,possible abcess in L upper breast area 2D Dimensions LVOT 1.62 cm (M/F) 1.5-2.5 LA Volume 14.20 mL LA Volume Index 9.90 mL/m2 (M/F) 16-34 M-Mode Dimensions RVDd 2.24 cm (0.9-2.6) LA Diam 2.60 cm (1.9-4.0) LVDd 3.98 cm (3.5-5.7) Ao Diam 3.13 cm (2.0-3.7) LVDs 2.95 cm (3.5-5.7) IVSd 0.74 cm (0.6-1.1) PWd 0.91 cm (0.6-1.1) EF (Teich) 51.40% FS 25.90% EDV (Teich) 69.20 mL TAPSE 1.76 (<1.7) ESV (Teich) 33.60 mL LV Diastology E Decel Time 227.00 (160-240 msec) E/A Ratio 1.42 MED E' 13.50 (< 7 cm/sec) MED A' 9.40 cm/s E'/MED E' Ratio 6.20 (>14) LAT E' 20.30 (<10 cm/sec) LAT A' 5.60 cm/s E/LAT E' Ratio 4.12 (>14) Aortic Valve AO Peak GR. 3.90 mmHg Mitral Valve MV A Velocity 59.00 (40-130 cm/s) E/A Ratio 1.42 MV Decel. Time 227.00 (160-240 ms) Pulmonary Valve PV Peak Velocity 98.00 (50-150 cm/s) Tricuspid Valve TR P. Velocity 282.00 cm/s RAP Estimate 10.00 mmHg RVSP 41.80 mmHg Left Ventricle The left ventricle is normal size. The left ventricular systolic function is normal. The left ventricular ejection fraction is within the normal range. There is normal left ventricular wall thickness. There is normal LV segmental wall motion. There is normal diastolic function. LVEF is 55%. Right Ventricle The right ventricle is normal size. The right ventricular systolic function is normal. Atria The left atrium size is normal. The right atrium size is normal. There is no Doppler evidence of interatrial shunt. Aortic Valve The aortic valve is normal in structure. The aortic valve appears trileaflet. There is no aortic valvular stenosis. No aortic regurgitation is present. No obvious AV vegetations are noted. Mitral Valve The mitral valve is normal in structure. No evidence of mitral valve stenosis. There is no mitral valve regurgitation noted. No obvious MV vegetations are noted. Tricuspid Valve The tricuspid valve leaflets are thin and pliable. Trace tricuspid regurgitation. There is insufficient TR jet to estimate RVSP. No obvious TV vegetations are noted. Pulmonic Valve The pulmonary valve is normal in structure. Trace pulmonic regurgitation. No obvious PV vegetations are noted. Great Vessels The aortic root is normal in size. The ascending aorta is normal in size. IVC is normal in size and collapses >50% with inspiration. Pericardium There is no pericardial effusion. Other Information Study Quality: Adequate Conclusion Normal biventricular systolic function. No significant valvular disease. No obvious evidence of valvular vegetations or masses. Note that this TTE does not conclusively rule out endocarditis. If endocarditis is still clinically suspected, further evaluation with BRANDIE is recommended. Electronically signed by : Enedina Ledezma, 10/07/2022 17:34:20
== END ==
PROVIDERS: PCP Physician Assistant; Visit Provider Physician Assistant
DX: R07.9 Chest pain, unspecified (principal)
CPT/HCPCS: 93306

== ENCOUNTER → 2022-10-14 11:00 | Outpatient (CLI) | payer OTHER, SELFPAY ==
--- NOTE | 2022-10-14 11:06 | MM_ITS ---
PROCEDURE INFORMATION: Exam: US Right Breast, Complete US Left Breast, Complete MG Bilateral Diagnostic Breast Tomosynthesis Exam date and time: 10/14/2022 1:51 PM Age: 32 years old Clinical indication: Bilateral breast pain; Left breast palpable lump; palpable lt chest wall protrusion. This area is above the lt breast on the chest wall TECHNIQUE: Imaging protocol: Complete ultrasound of all four quadrants of the right breast and the retroareolar regions, including ultrasound of the axilla when performed. Complete ultrasound of all four quadrants of the left breast and the retroareolar regions, including ultrasound of the axilla when performed. Bilateral Diagnostic tomosynthesis and 2D mammography including computer-aided detection (CAD) when performed. Unilateral or bilateral exam. COMPARISON: BR US BREAST-RT COMPLETE W/AXILLA 07/10/2015 3:11 PM FINDINGS: MAMMOGRAPHY: The breast tissue is composed of scattered areas of fibroglandular density. There is no stellate mass, architectural distortion or suspicious microcalcifications in either breast to suggest malignancy. No skin thickening or axillary adenopathy. ULTRASOUND: Sonographic images of both breasts including the retroareolar regions, all 4 quadrants and the axilla do not demonstrate any solid masses. Minimal subcentimeter cystic change is present right 12 o'clock axis 2 cm from the nipple. No focal findings in the left 10 o'clock axis 13 cm from the nipple where the patient reports a palpable abnormality. This is reported as the chest wall. A rib it is imaged close to the skin surface in the region of palpable concern. Clinical correlation is needed. No architectural distortion or acoustical shadowing. No skin thickening or axillary adenopathy. IMPRESSION: Palpable abnormality in the left breast corresponds both mammographically and sonographically to normal fibroglandular structures. There is no mammographic evidence of malignancy. Further evaluation of a palpable abnormality should be based on clinical grounds regardless of radiographic findings or lack thereof. Annual bilateral mammographic screening is recommended to commence at the age of 40 unless otherwise clinically indicated. ASSESSMENT: BI-RADS Category 2: Benign
--- NOTE | 2022-10-14 11:06 | CT_ITS ---
FINAL REPORT TECHNIQUE: Then section axial CT images of the chest were obtained with contrast. Three-D reformatted images were also obtained.This study was performed with techniques to keep radiation doses as low as reasonably achievable (ALARA). Individualized dose reduction techniques using automated exposure control or adjustment of mA and/or kV according to the patient''s size were employed. CLINICAL HISTORY: abnl ecg/chest pain 70 ml isovue given COMPARISON: None FINDINGS: There is no evidence of pulmonary embolism. There is no evidence of thoracic aortic aneurysm or dissection. There is no evidence of mediastinal or hilar mass or adenopathy. No localized inflammatory process is seen within the lungs. Limited images of the upper abdomen are unremarkable. IMPRESSION: No evidence of pulmonary embolism. No mass or localized inflammatory process. Reviewed, Interpreted and Dictated by Chava Flanagan III, MD Transcribed by Dayana Puente Authenticated and . [facility]
--- NOTE | 2022-10-14 11:06 | CT_ITS ---
FINAL REPORT TECHNIQUE: Axial images were obtained from the lung apex to the mid abdomen by computed tomography. Sagittal and coronal reconstructions were performed. This study was performed with techniques to keep radiation doses as low as reasonably achievable, (ALARA). Individualized dose reduction techniques using automated exposure control or adjustment of mA and/or kV according to the patient's size were employed. CLINICAL HISTORY: chest wall abscess on the left side COMPARISON: None FINDINGS: There is no axillary adenopathy. There is no hilar or mediastinal adenopathy. Heart size is normal. There is no pericardial or pleural effusion. The patient is post cholecystectomy. There is a calcified granuloma present in the left lower lobe. There is a 4 mm anterior right lower lobe nodule best seen on axial image #32. There is another nonspecific 4 mm nodule in the anterior right lower lobe, best seen on axial image #54. IMPRESSION: No acute process. 2 small nonspecific 4 mm nodules present in the right lower lobe as described. Reviewed, Interpreted and Dictated by Chava Flanagan III, MD Transcribed by Dayana Puente Authenticated and [facility]
== END ==
PROVIDERS: PCP Physician Assistant; Visit Provider Physician Assistant
DX: R07.9 Chest pain, unspecified (principal); L02.213 Cutaneous abscess of chest wall; N64.4 Mastodynia; N63.20 Unspecified lump in the left breast, unspecified quadrant; F19.90 Other psychoactive substance use, unspecified, uncomplicated; R94.31 Abnormal electrocardiogram [ECG] [EKG]
CPT/HCPCS: 71250; 71275; 76641; 77062; 77066; G0279; Q9967

== ENCOUNTER → 2022-10-21 12:47 | Outpatient (CLI) | payer OTHER, SELFPAY ==
--- NOTE | 2022-10-21 | CA_ITS ---
APPROVED REPORT Exam: Exercise Treadmill Technologist: Barbara Rick Ht: 4 ft 9 in Wt: 108 lbs BSA: 1.38 m2 HR: 77 bpm BP: 131/93 mmHg Rhythm: NSR Indications: Chest pain 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 Medications: LaMotrigine,,,,, Stress Test Details Test: Terry HR Resting HR: 102 bpm Max Heart Rate (APMHR): 186 bpm Max HR Achieved: 138 bpm Target HR (85% APMHR): 158 bpm % of APMHR: 74 Recovery HR: 90 bpm HR response to stress: Blunted HR response to stress BP Resting BP: 131.0/93.0 mmHg Max BP: 170.0/87.0 mmHg Recovery BP: 140.0/82.0 mmHg BP response to stress: Normal blood pressure response to stress. ECG Resting ECG: Normal sinus rhythm, right axis deviation Stress ECG: No significant ST changes Arrhythmia: None Recovery ECG: No significant ST changes Recovery Arrhythmia: None Clinical Exercise duration: 06:30 min Highest Stage Achieved: Exercise capacity: 7.0 METs Overall Exercise Capacity for Age: Poor Stress ECG Conclusion This was a suboptimal stress test in the setting of inability to achieve target HR. The patient was able to exercise for a total of 6 minutes, 30 seconds. She achieved a total of 7 METS. She has poor exercise capacity compared to age and sex matched peers. Test stopped due to shortness of air, fatigue. She had blunted HR, but normal BP, response to exercise. Symptoms: Increase in pre-existing chest pain with exercise. Arrhythmias/Ectopy: None ST-T Changes: Normal ST response to exercise. Conclusion: Suboptimal stress test due to inability to achieve target HR. This was a nondiagnostic test. Poor exercise capacity. No significant ST changes at the HR level achieved. GXT only (no imaging). As this was a non-diagnostic test, further evaluation of the patient's chest pain is recommended with alternative diagnostic modalities (e.g. CCTA). Test Summary REST . . . . . . . Sitting REST . . . . . . . Standing REST 04:51 0.0 0.0 102 . 131/ 93 . . Stage 1 01:00 10.0 1.7 111 . . . . Stage 1 . . . . . . . Shortness of Breath Stage 1 02:00 10.0 1.7 121 . . . . Stage 1 03:00 10.0 1.7 118 . 134/ 80 . . Stage 2 01:00 12.0 2.5 125 . . . . Stage 2 02:00 12.0 2.5 122 . . . . Stage 2 03:00 12.0 2.5 124 . 136/ 84 . . Stage 3 00:30 14.0 3.4 114 . . . Stop exercise at 06:30 RECOVERY 01:00 0.0 0.0 118 . . . . RECOVERY 02:00 0.0 0.0 82 . . . . RECOVERY 03:00 0.0 0.0 89 . 170/ 87 . . RECOVERY 04:00 0.0 0.0 96 . 148/ 91 . . RECOVERY 05:00 0.0 0.0 85 . 140/ 82 . . RECOVERY 05:19 0.0 0.0 82 . 140/ 82 . . Electronically signed by : Enedina Ledezma MD 11/06/2022 01:16:05
== END ==
LOC: RAD 12:48
PROVIDERS: PCP Physician Assistant; Visit Provider Physician Assistant
DX: R07.9 Chest pain, unspecified (principal); R94.31 Abnormal electrocardiogram [ECG] [EKG]
CPT/HCPCS: 93017

== ENCOUNTER → 2022-11-13 16:10 | Outpatient (CLI) | payer OTHER, SELFPAY ==
--- NOTE | 2022-11-13 16:18 | MR_ITS ---
PROCEDURE INFORMATION: Exam: MR Chest Without Contrast. Exam date and time: 11/13/2022 4:16 PM Age: 32 years old Clinical indication: Chest wall pain; Additional info: Chest wall pain, palpable mass on the left side TECHNIQUE: Imaging protocol: MR chest without contrast. COMPARISON: 1. MG MM DIG MAMM BI DX W/CAD 10/14/2022 1:51 PM 2. US BREAST LT COMPLETE 10/14/2022 3:[address] CHEST WO CON 10/14/2022 11:12 AM FINDINGS: Limitations: The study is motion degraded. Tubes, catheters and devices: Deep to the palpable marker there is no mass seen by MRI. Lungs: Unremarkable. Heart: Unremarkable. Pleural spaces: No pleural effusion. Bones/joints: Unremarkable. No acute fracture. Lymph nodes: Benign-appearing subcentimeter left axillary nodes with fatty hilum present. Soft tissues: There is a palpable marker in the left upper chest soft tissues at the level of the IMPRESSION: No suspicious mass is seen in the left chest wall on MRI at the site of the palpable marker.
== END ==
PROVIDERS: PCP Physician Assistant; Visit Provider Physician Assistant
DX: R07.89 Other chest pain (principal)
CPT/HCPCS: 71550

== ENCOUNTER → 2022-11-26 08:17 | Outpatient (CLI) | payer OTHER, SELFPAY ==
--- NOTE | 2022-11-26 08:24 | NM_ITS ---
APPROVED REPORT Exam: Nuclear Stress Test Indication: C.P., SOB, PALPITATIONS, ABN EKG Patient Location: Outpatient Stress Tech: Barbara DAVIS Tech:DAVID Villalta RT(R)(N) Ht: 4 ft 9 in Wt: 108 lbs Bra Size: 36D HR: 80 bpm BP: 139/67 mmHg BSA: 1.38 m2 TID: 1.20 BMI: 23.3 History: C.P., SOB, PALPITATIONS, ABN EKG Procedure: Patient received 0.4 mg of intravenous Lexiscan, resting heart rate 80 bpm, resting blood pressure 139/67 mmHg, with Lexiscan maximum heart rate achieved was 127 bpm which is % of the maximum predicted heart rate and blood pressure was 139/67 mmHg. With Lexiscan, patient denied any complaint of chest pain. Cardiac Stress and Resting SPECT Images: Cardiac Stress and Resting SPECT images were obtained using technetium 99m Myoview 30.7 mCi stress and 9.51 mCi at rest. Resting and stress imaging in supine and prone positions demonstrate no evidence of fixed or reversible perfusion defects. There is borderline increase in transient ischemic dilatation ratio (TID 1.20), suggestive of possible multivessel disease or balanced ischemia. Gated imaging demonstrates low-normal global and regional LV systolic function. LVEF is calculated at 50%. Conclusion: No evidence of fixed or reversible perfusion defects. There is borderline increase in transient ischemic dilatation ratio (TID 1.20), suggestive of possible multivessel disease or balanced ischemia. Gated imaging demonstrates low-normal global and regional LV systolic function. LVEF is calculated at 50%. Electronically signed by : Enedina Ledezma MD 11/29/2022 22:28:04
--- NOTE | 2022-11-26 09:01 | CA_ITS ---
APPROVED REPORT Exam: Pharmacologic Technologist: Kristin Ontiveros, Ht: 4 ft 11 in Wt: 110 lbs BSA: 1.43 m2 HR: 83 bpm BP: 139/67 mmHg Rhythm: NSR 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 Medications: LaMotrigine,,,,, Stress Test Details Test: LEXISCAN Reason for pharmacologic stress test: changed from exercise stress test due to inability to reach target heart rate. HR Resting HR: 80 bpm Max Heart Rate (APMHR): 186 bpm Max HR Achieved: 127 bpm Target HR (85% APMHR): 158 bpm % of APMHR: 68 Recovery HR: 102 bpm BP Resting BP: 139.0/67.0 mmHg Max BP: 139.0/67.0 mmHg Recovery BP: 133.0/84.0 mmHg ECG Resting ECG: NSR Stress ECG: No ST changes Arrhythmia: None Clinical Exercise duration: 04:00 min Highest Stage Achieved: Stress ECG Conclusion Symptoms: SOA, head discomfort, flushed. No CP. Arrhythmias/Ectopy: None ST-T Changes: No significant ST changes. Conclusion: Unremarkable Lexiscan stress. Myoview images reported separately. Test Summary REST . . . . . . . Resting REST 04:33 . . 80 . 139/ 67 . . Stage 1 01:00 . . 118 . . . . Stage 2 01:00 . . 124 . 134/ 87 . . Stage 3 01:00 . . 114 . 138/ 82 . . Stage 4 01:00 . . 112 . 129/ 84 . Stop exercise at 04:00 RECOVERY 01:00 . . 110 . . . . RECOVERY 02:00 . . 99 . 139/ 85 . . RECOVERY 03:00 . . 109 . 133/ 84 . . RECOVERY 03:13 . . 108 . 133/ 84 . . Electronically signed by : Enedina Ledezma MD 11/29/2022 22:26:00
== END ==
LOC: RAD 08:18
PROVIDERS: PCP Physician Assistant; Visit Provider Physician Assistant
DX: R07.9 Chest pain, unspecified (principal); R94.31 Abnormal electrocardiogram [ECG] [EKG]
CPT/HCPCS: 78452; 93017; A9502; J2785

== ENCOUNTER 2022-12-28 12:08 | Outpatient (CLI) | payer OTHER, SELFPAY ==
--- NOTE | 2022-12-28 12:08 | CT_ITS ---
APPROVED REPORT Scientific Research Associate: CLINICAL INDICATION Chest Pain TECHNIQUE Image Acquisition: A 128 slice MDCT scanner (ParentPlusa View) was used for data acquisition. A noncontrast coronary calcium scan was performed. A CT attenuation threshold of 130 Hounsfield units (HU) was used for the detection of calcium in contiguous voxels of 1 sq mm in area to be counted as individual lesions. Bolus tracking in the ascending aorta with a threshold of 180 HU was performed. Immediately afterwards, ECG synchronized cardiac CT was then performed from the cardiac base to apex using retrospective gating with ECG tube current modulation. A total of 85 mL of Isovue 370 mg/mL contrast medium was administered at 5 mL/sec followed by a saline flush using a biphasic injection protocol. A tube voltage of 120 KVp was used. The patient received the following medications prior to the cardiac CT. 100 mg of oral metoprolol 15 mg of intravenous metoprolol 0.8 mg of sublingual nitroglycerin The average heart rate at the time of acquisition was 62 bpm and regular. Image Reconstruction Transaxial images were reconstructed at 0.67 mm slide thickness. Data was reviewed interactively on an advanced workstation capable of 2 and 3-dimensional displays in all conventional reconstruction formats, including multiplanar reformations, maximum intensity projections, curved multiplanar reformations, and volume rendered reconstructions. When applicable, selected routine images describing the relevant coronary anatomy and pathology were saved and sent to PACS. Complications None Technical Quality Overall image quality was good. Coronary artery opacification was adequate. Total DLP (Dose-Length Product) is 1047.8 mGy-cm. The reported value represents the total of one or more individual components during the CT acquisition of this date and at this time, and as such, the same value may appear in more than one CT report depending on the interpreting/reporting physicians. COMPARISON None FINDINGS CT Coronary Calcium Scoring LMA (Left Main Artery) = 0 LAD (Left Anterior Descending) = 0 LCX (Left Coronary Circumflex) = 0 RCA (Right Coronary Artery) = 0 Total Calcium Score = 0 using the AJ-130 method. The interpretation of the calcium heart score is based on the following continuum*: 0 = no calcified plaque detected (risk of coronary artery disease is very low ??? less than 5%) 1-10 = calcium detected in extremely minimal levels (risk of coronary diseases is still low ??? less than 10%) 11-100 = mild levels of plaque detected with certainty (mild or minimal narrowing of heart arteries is likely) 101-400 = definite,at least moderate levels of plaque detected (relatively high risk of a heart attack within 3-5 years) >401-999 = extensive levels of plaque detected (high risk of heart attack, high levels of vascular disease are present, high likelihood of at least one significant coronary narrowing) *The calcium heart score quantifies the burden of coronary calcification/plaque in the coronary arteries. The calcium heart score is not able to evaluate the presence or burden of non-calcified (i.e. soft) plaque. There is no identifiable calcification in the aortic valve, mitral annulus or mitral valve, pericardium, or myocardium. Coronary CT Angiography Coronaries have normal origin and proximal course. The coronary arterial system is right dominant. Note: Stenosis is reported as maximum percentage diameter stenosis. Quantitative Stenosis Grading: Left Main (LM): The left main originates normally from the left sinus of Valsalva. The LM bifurcates into the left anterior descending artery and left circumflex artery. The LM is patent with no evidence of atherosclerosis.
[2022-12-28 12:29] VITALS: BMI 23.8
[2022-12-28 12:32] VITALS: BP 137/88; PULSE 96; RESP 18; TEMP 36.7; O2SAT 97
[2022-12-28 13:03] LABS: Urine Pregnancy, HCG Qual. Negative (Negative)
[2022-12-28 13:14] LABS: Anion Gap 12.7 mEq/L (5-15); Blood Urea Nitrogen 10 mg/dl (7-17); Calcium 9.4 mg/dl (8.4-10.2); Carbon Dioxide 27 mmol/L (22.0-30.0); Chloride 104 mmol/L (98-107); Creatinine Clearance Estimated 69 mL/min (50-200); Estimated Glomerular Filt Rate 72 ml/min (>60); GFR (African American) 87 ML/MIN (>60); Glucose 77 mg/dl (74-100); Potassium 3.7 mmoL/L (3.5-5.1); Sodium 140 mmol/L (136-145)
[2022-12-28 14:06] VITALS: BP 112/82; PULSE 64
[2022-12-28 14:40] VITALS: BP 108/75; PULSE 70; RESP 18; O2SAT 100
--- NOTE | 2022-12-28 14:40 | PC.NURSE ---
Pt settled into recliner, says RODRIGUEZ is improving. VSS
--- NOTE | 2022-12-28 14:47 | PC.NURSE ---
1255 Metoprolol 100mg po given, HR 75 1349 Metoprolol 5mg IV given, HR 73 1404 Metoprolol 5mg IV, HR 68 1406-Pt taken to CT room, 112/82, P 64 Nitro 0.8mg SL given 1413-post Nitro BP 119/81 1418-Metoprolol 5mg IV given for HR in 65-70 1425-Pt began not feeling well when contrast given and test aborted. Pt vomited large amt. 118/84 HR in 50's 1430-Pt feeling better, testing resumed. 118/77 1440- test complete, 118/77. Pt taken to post op for recovery. Pt c/o RODRIGUEZ.
[2022-12-28 14:55] VITALS: BP 103/71; PULSE 64; RESP 18; O2SAT 100
--- NOTE | 2022-12-28 14:57 | PC.NURSE ---
Pt without C/O, resting quietly in recliner, VSS.
[2022-12-28 15:10] VITALS: BP 138/66; PULSE 62; RESP 17; O2SAT 95
== END 2022-12-28 15:18 | disposition home or self-care (01) ==
PROVIDERS: PCP Physician Assistant; Visit Provider Nurse Practitioner
DX: R07.9 Chest pain, unspecified (principal); I51.7 Cardiomegaly; R94.31 Abnormal electrocardiogram [ECG] [EKG]; F19.90 Other psychoactive substance use, unspecified, uncomplicated
CPT/HCPCS: 75571; 75574; 80048; 81025; Q9967

== ENCOUNTER 2023-08-12 13:24 | Emergency (ER) | payer OTHER, SELFPAY ==
[2023-08-12 13:24] VITALS: BP 131/74; PULSE 83; RESP 18; TEMP 36.8; O2SAT 98; BMI 28.1
--- NOTE | 2023-08-12 13:25 | PC.NURSE ---
DR SEPULVEDA AT BEDSIDE
[2023-08-12 13:28] VITALS: BP 131/74; PULSE 91; O2SAT 97
--- NOTE | 2023-08-12 13:28 | ED_ITS ---
Discharge Plan Disposition Patient Disposition: Home, Self-Care Prescriptions Prescriptions: New epinephrine 0.3 mg/0.3 mL auto-injector 0.3 mg IM Q10M PRN (Reason: anaphylaxis) Qty: 2 0RF Rx Instructions: for 2 doses No Action lamotrigine [Lamictal] 25 mg tablet See Rx Instructions PO .COMPLEX Qty: 60 1RF Rx Instructions: take 1 tablet for 2 weeks; take 2 tablets daily PO ; buprenorphine-naloxone 8-2 mg tablet, sublingual 1 tab sublingual BID Referrals Follow up/Referrals: Brigitte Prado PA [Primary Care Provider] - See instructions Activity Restrictions/Add. Instructions Additional Instructions/Restrictions: At this time it was felt you are safe to be discharged home. If new or worsening symptoms please do not hesitate to return the emergency department. Please take Benadryl 50 mg every 6 hours as needed. Please use your EpiPen as prescribed. Clinical Impressions Clinical Impression: Wasp sting Instructions Patient Instructions: DI for Skin Abscess Discharge ED Provider: Fazal Mosley General Adult HPI General Chief complaint: Skin/Abscess/Foreign Body Stated complaint: possible allergic reation, stung by wasps Time Seen by Provider: 08/12/23 13:25 History of Present Illness HPI narrative: Patient is a 33-year-old female presents emergency department for evaluation of wasp sting. Patient got stung twice on her right lateral hip 15 minutes prior to arrival. Has never had anaphylaxis before. She has pain at the site and redness and swelling causing her to present here for continued evaluation. No shortness of breath. No other acute complaints at this time. Related Data Home Medications Medication Instructions Recorded Confirmed buprenorphine 8 mg-naloxone 2 mg 1 tab sublingual BID 08/03/23 08/03/23 sublingual tablet Previous Rx's Medication Instructions Recorded lamotrigine 25 mg tablet (Lamictal) See Rx Instructions PO .COMPLEX 07/26/23 Depression #60 tabs epinephrine 0.3 mg/0.3 mL 0.3 mg (0.3 mL) IM Q10M PRN 08/12/23 injection, auto-injector anaphylaxis #2 ea Allergies Allergy/AdvReac Type Severity Reaction Status Date / Time cephalexin [From KEFLEX] Allergy Severe HIVES Verified 08/03/23 11:11 morphine [MORPHINE] Allergy Unknown Unknown Verified 08/03/23 11:11 allergy reaction promethazine [From PHENERGAN] Allergy Unknown Unknown Verified 08/03/23 11:11 allergy reaction tetanus toxoid, adsorbed Allergy Unknown Unknown Verified 08/03/23 11:11 [TETANUS TOXOID, ADSORBED] allergy reaction PFSH PFS Disclaimer: The information contained in this section may have been updated after the patient was seen, as this information can be updated by other users. 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 Transient ischemic dilation of left ventricle of heart Right axis deviation Abnormal electrocardiogram [ECG] [EKG] Breast pain, right Ovarian cyst Post endometrial ablation syndrome Anxiety and depression Surgical History History of tonsillectomy and adenoidectomy History of laparoscopy H/O removal of cyst History of endometrial ablation History of appendectomy History of cholecystectomy H/O tubal ligation Family History Brother Substance abuse Brother Substance abuse Father Substance abuse Social History Smoking Status: Never smoker second hand exposure: No alcohol intake: former year quit: 2017 counseling given: No (she used to drink vodka; was a heavy drinker) substance use type: crack/cocaine, heroin, painkillers, IV drugs and methamphetamine counseling given: Yes counseling provided: provider counseling and treatment program current occupational status: employed Travel in the last 8 weeks: None adopted: No caregiver/support person: No foster care: No household members: none housing: apartment lives independently: No marital status: legally number of children: 2 number of grandchildren: 0 education level: high school service: No 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 [employer] Recent Travel: No sexually active: Yes caffeine: Yes physical activity: none josh/tenriism: None special josh needs: No working smoke detector in home: Yes fire extinguisher in home: Yes carbon monox detector in home: Yes firearms in home: No do you feel safe at home: Yes victim of physical abuse: No victim of emotional abuse: No victim of sexual abuse: No would you like helpful sources: No ROS Obtained: Yes Systems reviewed as appropriate & no additional complaints except as documented Physical Exam General General appearance: alert and in no apparent distress Head Head exam: atraumatic and normocephalic Eye Eye exam: Present PERRL ENT ENT exam: Present mucous membranes moist Neck Neck exam: Present normal inspection Chest Chest inspection: Present normal inspection and symmetric chest wall rise Respiratory Respiratory exam: Present normal lung sounds bilaterally; Absent respiratory distress Cardiovascular Cardiovascular exam: Present regular rate and normal rhythm Abdominal Exam Abdominal exam: Present soft Extremities Exam Extremities exam: Present other (Erythematous indurated area with not well- demarcated borders approximately 8 cm x 12 cm over the right lateral thigh. No fluctuance.) Neurological Exam Neurological exam: Present alert Psychiatric Psychiatric exam: Present normal affect Skin Skin exam: Present warm and dry Medical Decision Making Bo Inquiry Pt receiving controlled substance: No Vital Signs: 08/12/23 13:24 08/12/23 13:28 08/12/23 13:30 Temperature 98.2 F Temperature Source Oral Pulse Rate 91 H 95 H Pulse Rate [Radial] 83 Respiratory Rate 18 Blood Pressure 131/74 138/95 H Blood Pressure [Right Arm] 131/74 Blood Pressure Mean [Right Arm] 93 Blood Pressure Source [Right Arm] Automatic Cuff Blood Pressure Position [Right Arm] Sitting 02 Sat by Pulse Oximetry 98 97 97 Oxygen Delivery Method Room Air Orders (Tests/Meds): ED MEDICATIONS Discontinued Medications Generic Name Dose Route Start Last Admin Trade Name Freq PRN Reason Stop Dose Admin Diphenhydramine HCl 50 mg 08/12/23 13:28 08/12/23 13:39 Diphenhydramine 50mg Capsule PO 08/12/23 13:29 50 mg ONCE ONE Administration Medical Decision Narrative: In summary patient is a 33-year-old female with past medical history described above who presents emergency department for evaluation of a wasp sting. Patient is hemodynamically stable nontoxic-appearing upon normal, afebrile. Patient history and physical exam patient is having a localized allergic reaction secondary to her sting. No concerning physical exam findings to suggest anaphylaxis. Given this limited interventions will be conducted with Benadryl and patient will undergo brief period of observation. The patient was placed in observation status at 1:30 PM. Medical necessity for observational status is serial physical exams to assess for progressive allergic reaction. Patient was provided serial evaluations while awaiting results and had no evidence of progressive allergic reaction or anaphylaxis upon repeat evaluation. Given this patient is appropriate for outpatient management at this time was instructed to take Benadryl every 6 hours will be discharged with EpiPen. Total time in observation 33 minutes. Critical Care Critical Care Time Critical Care Time: No
[2023-08-12 13:30] VITALS: BP 138/95; PULSE 95; O2SAT 97
[2023-08-12] MEDS: diphenhydrAMINE 50MG CAPSULE 50 MG PO (13:39)
[2023-08-12 14:09] VITALS: BP 123/77; PULSE 75; RESP 18; TEMP 36.8; O2SAT 98
== END 2023-08-12 14:10 | disposition home or self-care (01) ==
PROVIDERS: Emergency Provider Emergency Medicine; PCP Physician Assistant
DX: T63.461A Toxic effect of venom of wasps, accidental (unintentional), initial encounter (principal)
CPT/HCPCS: 99283

== ENCOUNTER 2023-08-17 11:16 | Outpatient (CLI) | payer OTHER, SELFPAY ==
[2023-08-18 13:05] LABS: HIV (1&2) Antibody Rapid NON REACTIVE
[2023-08-19 15:14] LABS: HBsAg Screen Negative (Negative); HCV Ab Reactive (Non Reactive); Hep A Ab, IGM Negative (Negative); Hep B Core Ab, IgM Negative (Negative)
== END 2023-08-17 23:59 | disposition home or self-care (01) ==
LOC: LAB 11:17
PROVIDERS: PCP Physician Assistant; Visit Provider Physician Assistant
DX: B34.9 Viral infection, unspecified (principal)
CPT/HCPCS: 36415; 80074; 87522

== ENCOUNTER 2024-12-20 09:28 | Outpatient (CLI) | payer OTHER, SELFPAY ==
[2024-12-20 10:18] LABS: Hematocrit 41.7 % (37.0-47.0); Hemoglobin 14.4 g/dL (12.2-16.2); Immature Granulocytes % 0.4 %; Mean Corpuscular HGB Conc 34.5 g/dL (31.8-35.4); Mean Corpuscular Hemoglobin 29.6 pg (27.0-31.2); Mean Corpuscular Volume 85.6 fl (81-99); Nucleated Red Blood Cells % 0 %; Platelet Count 284 K/mm3 (142-424); Red Blood Count 4.87 M/mm3 (4.20-5.40); Red Cell Distribution Width-SD 36.7 fL; White Blood Count 5.7 K/mm3 (4.8-10.8)
[2024-12-20 11:16] LABS: Alanine Aminotransferase 17 U/L (12-78); Albumin Level 4.3 g/dl (3.5-5.0); Alkaline Phosphatase 73 U/L (38-126); Anion Gap 10.1 mEq/L (5-15); Aspartate Amino Transferase 25 U/L (14-36); Bilirubin,Direct 0.2 mg/dl (0.0-0.4); Bilirubin,Indirect 0.4 mg/dL (0.0-0.9); Bilirubin,Total 0.6 mg/dl (0.2-1.3); Bilirubin,Unconjugated 0.4 mg/dL (0.0-1.1); Blood Urea Nitrogen 11 mg/dl (7-17); Calcium 9.5 mg/dl (8.4-10.2); Carbon Dioxide 27 mmol/L (22.0-30.0); Chloride 102 mmol/L (98-107); Cholesterol 197 mg/dl (140-200); Creatinine,Serum 0.80 mg/dl (0.52-1.04); Estimated Glomerular Filt Rate 81 ml/min (>60); GFR (African American) 98 ML/MIN (>60); Glucose 79 mg/dl (74-100); HDL Cholesterol 60 mg/dl (40-60); Magnesium 1.7 mg/dl (1.6-2.3); Potassium 4.1 mmoL/L (3.5-5.1); Sodium 135 mmol/L (136-145); Total Protein,Serum 7.3 g/dl (6.3-8.2); Triglycerides 120 mg/dl (30-150)
[2024-12-20 11:31] LABS: Free T4 (Free Thyroxine) 0.98 ng/dl (0.78-2.19)
[2024-12-20 11:46] LABS: Thyroid Stimulating Hormone 1.62 uIU/mL (0.465-4.68)
== END 2024-12-20 23:59 | disposition home or self-care (01) ==
LOC: LAB 09:28
PROVIDERS: PCP Physician Assistant; Visit Provider Nurse Practitioner
DX: R94.31 Abnormal electrocardiogram [ECG] [EKG] (principal); R06.00 Dyspnea, unspecified
CPT/HCPCS: 36415; 80048; 80061; 80076; 83735; 84439; 84443; 85025

== ENCOUNTER 2024-12-25 08:25 | Outpatient (CLI) | payer OTHER, SELFPAY ==
--- NOTE | 2024-12-25 08:45 | CA_ITS ---
APPROVED REPORT EXAM: Comprehensive 2D, Doppler, and color-flow Echocardiogram Contract Admin: Eleni Almazan RT(R) Ht: 4 ft 9 in Wt: 151lbs BSA: 1.60 BP: 133/72 mmHg Indications: abn EKG, shortness of breath, chest pain 2D Dimensions LA Volume 13.40 mL LA Volume Index 8.38 mL/m2 (M/F) 16-34 EF AP4 58.20 % GL Strain -16.6 % M-Mode Dimensions RVDd 1.91 cm (0.9-2.6) LA Diam 3.50 cm (1.9-4.0) LVDd 4.19 cm (3.5-5.7) LVDs 3.10 cm (3.5-5.7) IVSd 0.60 cm (0.6-1.1) PWd 0.54 cm (0.6-1.1) EF (Teich) 51.50% FS 26.00% EDV (Teich) 78.10 mL ESV (Teich) 37.90 mL LV Diastology E Decel Time 173 (160-240 msec) E/A Ratio 1.6 Mitral Valve MV E Max Gian. 91.0 (40-130 cm/s) MV A Velocity 57.0 (40-130 cm/s) E/A Ratio 1.60 MV PHT 51.0 ms Tricuspid Valve TR P. Velocity 191.00 cm/s Left Ventricle The left ventricle is normal size. Left ventricular systolic function is normal. The left ventricular ejection fraction is within the normal range. There is normal left ventricular wall thickness. There is normal LV segmental wall motion. The left ventricular diastolic function is normal. LVEF is 55% Right Ventricle The right ventricle is normal size. The right ventricular systolic function is normal. Atria The left atrium size is normal. The right atrium size is normal. There is no color Doppler evidence of interatrial shunt. Aortic Valve The aortic valve opens well. There is no hemodynamically significant aortic valvular stenosis. No aortic regurgitation is present. Mitral Valve The mitral valve is normal in structure. No evidence of mitral valve stenosis. Mild mitral regurgitation is present. Tricuspid Valve The tricuspid valve leaflets are thin and pliable. Trace tricuspid regurgitation. There is insufficient TR jet to estimate RVSP. Pulmonic Valve The pulmonary valve is grossly normal in structure. Trace pulmonic valve regurgitation is present. Great Vessels The aortic root is normal in size. IVC is normal in size and collapses >50% with inspiration. Pericardium There is no pericardial effusion. Conclusion Normal biventricular systolic function. Mild MR. Electronically signed by : Enedina Ledezma MD 12/25/2024 13:15:55
== END 2024-12-25 23:59 | disposition home or self-care (01) ==
LOC: RT 08:26
PROVIDERS: PCP Physician Assistant; Visit Provider Nurse Practitioner
DX: I34.0 Nonrheumatic mitral (valve) insufficiency (principal); R94.31 Abnormal electrocardiogram [ECG] [EKG]
CPT/HCPCS: 93306